=== PATIENT | male | born 1955 | race Caucasian/White ===

== ENCOUNTER 2024-12-23 12:29 | Emergency (ER) | payer MEDICARE, SELFPAY ==
--- NOTE | 2024-12-23 12:30 | ED_ITS ---
HPI - Ear Problem General Chief complaint: Ear Stated complaint: Right Ear Problem Time Seen by Provider: 12/23/24 13:06 Source: patient, RN notes reviewed and old records reviewed Mode of arrival: ambulatory Limitations: no limitations History of Present Illness HPI Narrative: 69-year-old male presents to the [facility] with decreased hearing to the right ear. States a couple of days. Related Data Home Medications ?Medication ?Instructions ?Recorded ?Confirmed ?Last Taken ?Type allopurinol 300 mg tablet mg 12/23/24 Unknown History atenolol 50 mg tablet mg 12/23/24 Unknown History cyclobenzaprine 10 mg tablet mg 12/23/24 Unknown History gabapentin 300 mg capsule mg 12/23/24 Unknown History hydrocodone 7.5 mg-acetaminophen tablet 12/23/24 Unknown History 325 mg tablet meloxicam 7.5 mg tablet mg 12/23/24 Unknown History valacyclovir 1 gram tablet mg 12/23/24 Unknown History Allergies Allergy/AdvReac Type Severity Reaction Status Date / Time No Known Allergies Allergy Verified 12/23/24 12:42 Review of Systems Review of Systems: All systems reviewed & are unremarkable except as noted in HPI and below Constitutional: Constitutional: Reports no additional constitutional complaints ENT: Reports as per HPI Cardiovascular: Cardiovascular: Reports no additional cardiovascular complaints, Denies chest pain and Denies dyspnea Respiratory: Respiratory: Reports no additional respiratory complaints, Denies chest congestion, Denies cough and Denies dyspnea Musculoskeletal: Musculoskeletal: Reports no additional musculoskeletal complaints Integumentary/Breasts: Skin/Breast: Reports system reviewed and no additional complaints, except as docu PMFSH Comments At the time of my signature, I reviewed and agree with the nursing past medical, surgical, social, and family history. There is no relevant family history pertinent to the patient complaint. Exam Const: General: cooperative, healthy appearing, comfortable, no acute distress, well developed, alert and well nourished Nutritional Appearance: well nourished Orientation/consciousness: patient oriented x3 Limitations: no limitations HENMT: Head: normal to inspection Ears: external ears normal, mastoids normal, no periauricular adenopathy, Abnormal EAC present cerumen impaction bilateral and unable to visualize TM bilaterally Eyes: General: appearance normal, both eyes and all related structures Alignment and Position: alignment normal Neck: Neck: normal visual inspection, full ROM, no lymphadenopathy and no meningeal signs Chest: Chest palpation & inspection: normal inspection of the chest Resp: Effort & Inspection: normal respiratory effort and able to speak in complete sentences Cardio: Rate: regular rate Skin: General skin exam: normal color and no rashes or lesions noted Neuro: General: patient oriented x3, gait normal, moves all extremities and no meningeal signs Cognition (Neuro): normal cognition Speech: normal speech Gait exam (Neuro): Normal gait present Extrem: General: normal to inspection, full ROM, capillary refill normal and normal gait Psych: Appearance: grossly normal and well kempt Mental Status: mental status grossly normal Speech and movement: Normal speech and movement present and Clear speech present Affect: normal affect Attitude: cooperative Course Course Level of Care: Express Care Visit Vital Signs Vital signs: Vital Signs Temperature 97.8 F 12/23/24 12:44 Pulse Rate 73 12/23/24 12:44 Respiratory Rate 16 12/23/24 12:44 Blood Pressure 108/68 12/23/24 12:44 Pulse Oximetry 98 12/23/24 12:44 Temperature 97.8 F 12/23/24 12:44 Pulse Rate 73 12/23/24 12:44 Respiratory Rate 16 12/23/24 12:44 Blood Pressure 108/68 12/23/24 12:44 Pulse Oximetry 98 12/23/24 12:44 Reviewed Procedures Ear Wax Removal Both Ears: Ear Wax Removal Date: 12/23/24 Ear Wax Removal Time: 13:15 Medical Decision Making MDM Narrative Medical decision making narrative: Patient sitting comfortably in exam room. Nontoxic, vitals stable. Patient in no acute distress Patient presents for decreased hearing of the right ear. Cerumen impaction noted bilaterally. ears cleaned without issue. Patient reports better hearing. Patient appropriate for outpatient treatment with close follow-up Discharge instructions reviewed with patient, as well as provided in writing per nursing staff. The instructions also include specific and strict return/GO TO THE ER as well as f/u information. All questions have been answered, and the patient deny any further questions with discharge and discharge plan. Some parts of this dictation were generated by voice recognition software and may contain typographical and/or grammatical inaccuracies. Differential Diagnosis Differential Diagnosis: Otitis media, cerumen impaction otitis externa, serous otitis Medical Records Medical records reviewed: Yes I reviewed the external patient's medical records. Vital Signs Vital Signs: Vital Signs Temperature 97.8 F 12/23/24 12:44 Pulse Rate 73 12/23/24 12:44 Respiratory Rate 16 12/23/24 12:44 Blood Pressure 108/68 12/23/24 12:44 Pulse Oximetry 98 12/23/24 12:44 Temperature 97.8 F 12/23/24 12:44 Pulse Rate 73 12/23/24 12:44 Respiratory Rate 16 12/23/24 12:44 Blood Pressure 108/68 12/23/24 12:44 Pulse Oximetry 98 12/23/24 12:44 Reviewed Lab Data Lab results reviewed: Yes I reviewed the patient's lab results. Labs: Reviewed Critical Care Time Critical Care Time Critical Care Time: No Discharge Plan Discharge Clinical Impression: Bilateral impacted cerumen Patient Disposition: Home Condition: Stable Instructions: Antibiotic Form, Carbamide Peroxide (Into the ear) Additional Instructions: You had Cerumen (EAR wax impaction). Do not use Q-tips or put anything in the ear. This can damage the ear. Instead , use Debrox or ear wax remover. Place 5 drops in ear after a hot shower and place a warm compress over the ear for 20 minutes. alternate doing this every 3-4 days. It will break up the wax gently. Do not use too much pressure. Once you have all of the cerumen out of your ears, you may do preventative treatment to prevent this from happening again. Use 5 drops once weekly after a hot shower. Patient Language: Icelandic Prescriptions: No Action cyclobenzaprine 10 mg tablet valacyclovir 1 gram tablet meloxicam 7.5 mg tablet hydrocodone-acetaminophen 7.5-325 mg tablet gabapentin 300 mg capsule allopurinol 300 mg tablet atenolol 50 mg tablet Follow-up/Referrals: Marine,MD Risa [Primary Care Provider] - 2 Weeks ([facility] [place] [facility] care follow up ) Time of Disposition: 13:21
--- OUTSIDE RECORDS SUMMARY | 2024-12-23 12:32 | XMS_ITS | Clinical Summary ---
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 Role Phone Unavailable Primary Care Provider Unavailabl e Social History Tobacco Use Types Packs/Day Years Used Date Smoking Tobacco: Never Assessed Sex and Gender Information Value Date Recorded Sex Assigned at Not on file Legal Sex Male 9:15 AM CDT Gender Identity Not on file Sexual Orientation Not on file Plan of Treatment Health Maintenance Due Date Last Done Comments DTAP/TDAP/TD VACCINES (1 - Tdap) 1974 COLORECTAL SCREENING 2000 Colorectal Cancer Screening 2000 FIT-DNA Q 3 years 2000 FIT/FOBT Q 1 year 2000 Flex Sig/CT Colonography Q 5 years 2000 PNEUMOCOCCAL VACCINE 50+ YEARS (1 of 1 - PCV) 03/12/20 05 ZOSTER VACCINE (1 of 2) 2005 INFLUENZA VACCINE (#1) 2024 RSV VACCINE (60+ or ) (1 - 1-dose 75+ series) 2030 Insurance
--- OUTSIDE RECORDS SUMMARY | 2024-12-23 12:32 | XMS_ITS | Encounter Summary ---
Author Organization [facility] Address [address] [place] [address] Care Team Providers Care Church Official Name Role Phone Risa Hawthorne MD Primary Care Provider + [phone] Thiago Bunch DMD Unavailable [phone] Alf Hernandez MD Unavailable [phone] Arnaud Durant MD Unavailable [phone] Arnaud Garcia MD Unavailable [phone] Juan Prince OD Unavailable [phone] Jorge Luis Manriquez MD Unavailable [phone] Wei Jaramillo MD Unavailable [phone] Elmo Aviles MD Unavailable [phone] Brennon HollisM Unavailable [phone] Moustapha Sharpe MD Unavailable Js Khalil MD Unavailable [phone] Lisy Lacey MD Unavailable Kavon Carvalho Unavailable Unavailable Thom Mendoza OD Unavailable [phone] Kamilah Lozano MD Unavailable Marycarmen Larios MD Unavailable + [phone] Bj Gomez MD Unavailable [phone] Gallo West MD Unavailable [phone] Phill Portillo MD Unavailable [phone] Encounter Details Date Type Department Care Team (Late st Contact Info) Description 09/10/2020 Telephone [facility] [address] [place] [address] Vesta Tobar, KARI Social History Tobacco Use Types Packs/Day Years Used Date Smoking Tobacco: Former Cigarettes Q uit: 09/23/2012 Smokeless Tobacco: Former Alcohol Use Standard Drinks/Week Comments Yes 6 (1 standard drink = 0.6 oz pur e alcohol) PHQ-2 Answer Date Recorded PHQ-2 Total Score (If total score is 3 or more points, staff should administer the PHQ-9) 0 04/11/2020 Sex and Gender Information Value Date Recorded Sex Assigned at Not on file 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 08/14/2020 08/21/2020 12/12/2020 3:05 AM C DT COVID: Suspected 05/29/2021 05/29/2021 05/29/2021 2:30 PM CDT documented as of this encounter Care Teams Church Official Relationship Specialty Start Date End Date Risa Hawthorne MD PCP - General 12/12/16 Thiago Bunch DMD Dental Motion Picture Set Up Worker 03/25/17 Alf Hernandez MD [address] [place] [address] [place] [address] Gastroenterology 03/25/17 Arnaud Durant MD [address] [place] [address] [address] [place] [address] Medical Oncology 03/25/17 06/04/21 Arnaud Garcia MD [address] [place] [address] [address] [place] [address] Psychiatry 03/25/17 01/06/24 Juan Prince OD [address] [place] [address] [address] [place] [address] Ophthalmology 03/25/17 06/04/21 Jorge Luis Manriquez MD [address] [place] [address] Rheumatology 03/25/17 06/04/21 Wei Jaramillo MD PROFESSIONAL DR BASHIR [address] [place] [address] Orthopedic Surgery 03/25/17 12/25/22 Elmo Aviles MD [address] [facility] [place] [address] Plastic Surgery 03/25/17 06/04/21 Brennon Hollis DPM [address] [facility] [place] [address] Orthotics 03/25/17 Moustapha Sharpe MD [address] [facility] [place] [address] Anesthesiologist Anesthesiology 04/08/20 12/25/22 Js Khalil MD [address] [facility] [address] [place] [address] Referring Physician Transplant Hepatology 10/08/20 Lisy Lacey MD 1 [facility] [address] [place] [address] Consulting Physician Neurology 11/28/20 Kavon Carvalho Optometry 06/05/21 12/02/21 Thom Mendoza OD [address] [place] [address] Optometry 12/03/21 Kamilah Lozano MD [address] [place] [address] Medical Oncologist/Supervisor Assembly Department Medical Oncology 08/06/22 Marycarmen Larios MD [address] [place] [address] Consulting Physician Plastic Surgery 12/26/22 Bj Gomez MD [address] [place] [address] Consulting Physician Anesthesiology 07/02/23 Gallo West MD [address] [place] [address] DR HUSSAIN Elena [address] [address] Surgeon Orthopedic Surgery 01/07/24 Phill Portillo MD [address] [place] [address] [place] [address] Orthopedic Surgery 10/03/21 documented as of this encounter
--- OUTSIDE RECORDS SUMMARY | 2024-12-23 12:32 | XMS_ITS | Clinical Summary ---
Author Organization [facility] Address [address] [place] [address] Care Team Providers Care Virtual Classroom Manager Name Role Phone Risa Hawthorne MD Primary Care Provider + [phone] Alf Hernandez MD Unavailable [phone] Brennon HollisM Unavailable [phone] Js Khalil MD Unavailable [phone] Lisy Lacey MD Unavailable Thom Mendoza OD Unavailable [phone] Kamilah Lozano MD Unavailable Marycarmen Larios MD Unavailable [phone] Bj Gomez MD Unavailable [phone] Gallo West MD Unavailable [phone] Phill Portillo MD Unavailable [phone] Allergies No known active allergies Medications senna (SENOKOT) 8.6 mg tablet Take 1-2 tabs nightly for chronic constipation management. 180 tablet 3 024 Active Additional Information Patient not taking.Reported on 12/14/2024 allopurinoL (ZYLOPRIM) 300 mg tabletIndications :Gouty arthritis Take 1 tablet (300 mg total) by mouth daily 90 tablet 3 025 Active sildenafiL, pulm.hypertension , (REVATIO) 20 mg tabletIndications :ED (erectile dysfunction) of organic origin Take 2 tablets (40 mg total) by mouth as needed (ED) ON AN EMPTY STOMACH 60 tablet 5 Active olmesartan (BENICAR) 20 mg tabletIndications :Benign hypertension Take 1 tablet (20 mg total) by mouth daily 90 tablet 1 Active atenoloL (TENORMIN) 50 mg tabletIndications :Benign hypertension Take 1 tablet (50 mg total) by mouth daily 90 tablet 3 025 Active famotidine (PEPCID) 20 mg tabletIndications :gastroesophageal reflux disease Take 1 tablet (20 mg total) by mouth 2 (two) times a day 180 tablet 2 025 2025 Active rosuvastatin (CRESTOR) 40 mg tabletIndications :Multiple-type hyperlipidemia Take 1 tablet (40 mg total) by mouth daily 90 tablet 2 Active valACYclovir (VALTREX) 1 gram tabletIndications :HSV-2 infection Take 1 tablet (1,000 mg total) by mouth daily FOR HSV PREVENTION 90 tablet 3 Active HYDROcodone-aceta minophen (NORCO) 7.5-325 mg per tabletIndications :Pain Take 1 tablet by mouth every 6 (six) hours as needed for pain 120 tablet 025 2024 Active HYDROcodone-aceta minophen (NORCO) 7.5-325 mg per tabletIndications :Pain Take 1 tablet by mouth every 6 (six) hours as needed for pain 120 tablet 025 2024 Active Additional Information Patient not taking.Reported on 10/31/2024 cyclobenzaprine (FLEXERIL) 10 mg tabletIndications :Degenerative lumbar spinal stenosis,Lumbar radiculopathy Take 1 tablet (10 mg total) by mouth nightly as needed for muscle spasms 30 tablet 2 2024 Active gabapentin (NEURONTIN) 300 mg capsuleIndication s:Degenerative lumbar spinal stenosis,Lumbar radiculopathy Take 1 capsule (300 mg total) by mouth 3 (three) times a day 90 capsule 2 025 2024 Active zolpidem CR (AMBIEN CR) 6.25 mg CR tablet TAKE 1 TABLET BY MOUTH AT BEDTIME NEEDED FOR SLEEP 30 tablet 025 Active meloxicam (MOBIC) 7.5 mg tabletIndications :Primary osteoarthritis of right hip Take 1-2 tablets (7.5-15 mg total) by mouth daily 30 tablet 1 025 2025 Active traMADoL (ULTRAM) 50 mg tabletIndications :Acute right-sided low back pain without sciatica,Right hip pain,Acute pain of right knee Take 1 tablet (50mg total) by mouth twice daily as needed for right back, right hip, and/or right knee pain. 14 tablet 022 2021 Discontinued HYDROcodone-aceta minophen (NORCO) 7.5-325 mg per tabletIndications :Pain Take 1 tablet by mouth every 6 (six) hours as needed for pain 120 tablet 025 2024 zolpidem CR (AMBIEN CR) 6.25 mg CR tablet TAKE 1 TABLET BY MOUTH AT BEDTIME NEEDED FOR SLEEP 30 tablet 025 2024 Discontinued Active Problems Problem Noted Date Diagnosed Date Primary osteoarthritis of right hip 12/14/2024 Assessment & Plan (12/14/2024 11:05 AM CDT): Chronic, in exacerbation Differential diagnoses: Primary osteoarthritis v posttraumatic arthritis Hx relative to dx: No history of trauma to right hip Relative exam findings today: See physical exam Current meds: None for hip pain; takes Maize for chronic back pain per pain management Established with pain management follow-up 02/01/2024 Has previously done PT in the past for back and right hip with minimal pain alleviation Today's Plan: Start meloxicam Not interested in returning to physical therapy at this time Lab orders: none Imaging orders: Right hip x-ray; will compare to previous imaging Discussed: Potential for orthopedic consult regarding right hip. He follows with orthopedics for left shoulder at this time. Has follow-up with them next month. Pancytopenia 10/03/2024 Diabetes due to undrl condition w oth diabetic n euro comp 10/03/2024 BRBPR (bright red blood per rectum) 06/24/2024 Internal hemorrhoids 06/24/2024 Ulnar neuropathy of right upper extremity 2023 Encounter for long-term use of opiate analgesic 11/25/2023 Thoracic spinal stenosis 05/12/2023 Overview (05/12/2023): Confirmed on MRI April 2023 most significant at tiny 9 and 10 CORD: Evaluation is degraded by motion and pulsation related artifact. Subtle T2 hyperintense signal at T9-T10 would be difficult to exclude. THORACIC DISCS: T1-T2: No significant disc bulge or spinal canal stenosis. Thickened ligamentum flavum and facet arthropathy with bilateral neural foraminal narrowing. T4-T5: Minor disc bulge without significant spinal canal stenosis. Thickened ligamentum flavum and facet arthropathy with bilateral neural foraminal narrowing. T5-T6: Mild disc bulge without significant spinal canal stenosis. Thickened ligamentum flavum and facet arthropathy moderate to severe bilateral neural foraminal narrowing. T6-T7 and T7-T8: No significant disc bulge or spinal canal stenosis. Thickened ligamentum flavum and facet arthropathy with bilateral neural foraminal narrowing. T8-T9: Disc bulge with thickened ligamentum flavum and bilateral facet arthropathy. Mild spinal canal stenosis. Moderate to severe bilateral neural foraminal narrowing. T9-T10: Disc bulge with thickened ligamentum flavum and facet arthropathy. Disc abuts the ventral cord and thickened ligamentum flavum indents the dorsal cord. Moderate to severe spinal canal stenosis. Severe bilateral neural foraminal narrowing. At the remainder of the visualized thoracic levels no significant disc bulge, spinal canal or neural foraminal narrowing. LOWER CERVICAL: Incompletely imaged. Mid to lower cervical ACDF related changes are new when compared to the previous CT dated 08/27/2022. UPPER LUMBAR: Not imaged. IMPRESSION: 1. Multilevel thoracic disc degenerative changes with more advanced thickened ligamentum flavum and facet arthropathy as described. The spinal canal stenosis is most noticeable at T9-T10. 2. Neural foraminal narrowing and additional findings above. THIS IS AN ELECTRONICALLY VERIFIED FINAL REPORT 05/12/2023 7:53 AM - Electronically signed by Otto Savage D.O. Degenerative lumbar spinal stenosis 05/21/2022 Assessment & Plan (12/14/2024 11:01 AM CDT): Follows with pain management Has completed PT with minimal improvement of pain Maize per pain management q.6 hours PRN Discussed potential of lumbar stenosis contributing to right hip pain Assessment & Plan (04/13/2023 9:13 AM CDT): Lost his long-term pain management physician at [facility] in a new in his not arrived yet. Having difficulty with legs becoming painful and numb when walking. This is interfering with his activities and consult attendance. He is advised to get a wheeled walker. He qualifies for [employer] paperwork which is established for permanent disability today. It does not appear to need any new medications at this time. Previous testing is updated as the May 2022 confirming foraminal stenosis at multiple levels of the lumbar spine starting at L2-3 extending all through L5- S1. He has moderate spinal stenosis from L2-3 LY through 2 L4-5 DDD (degenerative disc disease), lumbar 05/05/20 Assessment & Plan (04/12/2024 10:59 AM CDT): Chronic problem, controlled on current regimen including Maize-Followed by pain management. C/o constipation as described above. Abdomen diffusely distended on exam today. No other acute findings on exam, vitals stable. Recent ER workup unremarkable. Continue current pain management recommendations and use Maize only as needed, as this is likely contributing to constipation. Assessment & Plan (05/26/2022 4:14 PM CDT): Chronic problem Followed by pain management Continue current pain management recommendations Has been unable to receive spinal injections due to thrombocytopenia Referred to hematology for evaluation Follow up as scheduled with Dr. Hawthorne in 06/2022 Lumbar radiculopathy 05/05/2022 Lumbar facet arthropathy 05/05/2022 Common bile duct dilation 12/31/2021 Overview (12/31/2021): Added automatically from request for surgery [id number] Abnormal CT of liver 06/19/2020 Overview (08/06/2022): Images from the original note were not included. Condition concerning because of previous thrombocytopenia Repeat MRCP (-) for liver problem 07/08/2022 Spleen: Normal Other Findings: Lung bases are clear. No abdominal lymphadenopathy. No marrow replacing osseous lesion IMPRESSION: 1. Unchanged size and appearance of lesions along the capsule of the inferior right hemiliver, favored represent sequela dropped gallstones. Additional unchanged focus of progressive enhancement in the gallbladder fossa is favored represent fibrotic changes status post cholecystectomy. No new suspicious hepatic lesion Dictated by: Elmo Chen M.D. HEPATOLOGY DECLINED CONSULTATION NOVEMBER 2021 Irene Velez RN [place], MD Wang [address] Dr. I am one of the RNs in Hepatology that manages new referrals. I received your referral from 12/03 requesting we follow up on this patient's imaging. Dr Khalil initially saw this patient 10/04/2020, and has been managing the MRI as well--this pt is already scheduled for a follow up MRI/MRCP on December 26, 2021--should have been done in Oct but this pt started a new job and needed time off. Was scheduled 12/09, and he changed it to 12/26. I have also included Dr Khalil's review of the 04/25/21 MRI: MD Simran sent at 04/25/2021 5:25 PM CDT ----- Previously seen areas either improved or stable; radiologist thought possibly some scar tissue related to gallbladder surgery. Slight dilation of bile ducts; with normal liver tests, no need for additional studies now. I would recommend follow up MRI/MRCP in 6 months. I wanted to let you know why I was cancelling this referral. Thanks, Irene Velez, RN,BSN Hepatology Nurse Coordinator for Dr. Carson Mota [phone] Condition found incidentally during pneumonia evaluation at the emergency room 04/26/2020 1. No acute findings in the abdomen or pelvis. 2. Right hepatic lobe 1.5 cm hypodense lesion with associated capsular retraction is new from 06/02/2019. This is indeterminate but suspicious for malignancy such as cholangiocarcinoma. The differential includes a focal area of infection or less likely infarction. Liver mass protocol MRI is recommended. 3. Bronchiolitis. Electronically signed by: Milan Núñez M.D.November 2020 repeat scan stable this is a consult The findings outlined above are consistent with a dropped gallstone, as well as scar tissue due to the previous gallbladder surgery. The radiologists have recommended repeating the MRI in 6 months. If that shows no further change, I suspect no additional MRI's will be needed Consultation Dr. Khalil September 2020 T he appearance of additional liver lesions does raise concern for malignancy. Tumor markers, as listed above, are not elevated. Of note, all of the lesions are along the edge of the liver or in the gallbladder fossa. I reviewed the films with one of our radiologists who is concerned the lesions represent dropped gallstones. These may have fallen out of the gallbladder at the time of the cholecystectomy. I think it reasonable to check another MRI to be certain the lesions are not intrahepatic neoplasms. However, it has been nearly 6 weeks since his last study and he has no obvious evidence of an accelerated tumor resulting in liver dysfunction or biliary obstruction. If these do represent dropped gallstones, they could become infected with time. I am not convinced exploration to try and remove them is necessary. Further recommendations at the time of follow-up MRI. Assessment & Plan (06/19/2020 3:24 PM CDT): CT for pneumonia eval showed abnl in liver--1.5 cm lesion in the R lobe as well as questionable mass in the duodenum. MRI corroborated the liver lesion at 2.5 cm. Blood work normal and no history to explain. Radiology suggested repeat scan 1-3 mos. Will order repeat for July. EGD 2 yrs ago normal duodenum but he desires to repeat to attain certainty. Foraminal stenosis of cervical region 01/26/2020 Overview (04/08/2020): C-spine MRI September 2019 Dr. Jaramillo, he referred to Dr. Sharpe to get foraminal injections IMPRESSION: 1. Multilevel cervical spondylotic changes have mildly progressed when compared to the previous MRI of 01/24/2014. No high-grade spinal canal narrowing. 2. Bilateral neural foraminal narrowing, left greater than right is most noticeable at C5-C6. Otto Savage D.O. T: 10/14/2019 11:05 AM Insomnia secondary to chronic pain 01/26/2020 Cervical spinal stenosis 01/26/2020 Overview (04/13/2023): C7-T1 spinal stenosis otherwise foraminal narrowing throughout C1-C2: No significant spinal stenosis. C2-C3: No significant spinal stenosis or neural foraminal stenosis. C3-C4: Stable shallow central disc protrusion. Minimal contact of the ventral cord but no cord impingement. Uncovertebral and facet spurring bilaterally with mild left and moderate right foraminal narrowing. C4-C5: Bilateral facet arthritis and uncovertebral spurs. Minimal uncovering of the posterior disc margin due to the anterolisthesis. Findings are stable. There is [id number] right and mild left foraminal narrowing. C5-C6: Diffuse uncovering of the posterior disc margin with shallow right paramidline disc protrusion. Slight contact and flattening along the anterior cord but no cord impingement. Facet and uncovertebral spurring on the left with severe left foraminal narrowing. No significant right foraminal narrowing. C6-C7: Facet and uncovertebral spurs left greater than right. No central canal stenosis. Mild bilateral foraminal narrowing. C7-T1: Facet and uncovertebral spurring on the left with mild left foraminal narrowing. Mild spinal stenosis due to mild thickening of posterior ligaments. No new finding. BASE OF BRAIN: No significant finding. UPPER THORACIC: Incompletely imaged. No significant spinal stenosis or foraminal stenosis. OTHER: No other significant finding. IMPRESSION: Stable overall appearance of the cervical spine with multilevel disc degeneration, facet arthritis and uncovertebral spurs. Spinal stenosis with mild contact along the ventral cord most evident at C5-6 and C4-5 levels. No high-grade spinal stenosis or cord impingement. Multilevel foraminal stenosis, most evident on the left at C5-6. See detail above. THIS IS AN ELECTRONICALLY VERIFIED FINAL REPORT 07/29/2022 9:24 AM - Electronically signed by Estefani Machado M.D. LC: CODEY Assessment & Plan (04/13/2023 9:13 AM CDT): Intermittent neck pain. Intermittent arm numbness and tingling. Not interfering with upper extremity activities. He does have foraminal stenosis throughout the cervical roots from C3-[address] C7-T1 with mild spinal stenosis at the lowest level. Assessment & Plan (04/13/2023 8:49 AM CDT): >>ASSESSMENT AND PLAN FOR DEGENERATIVE DISC DISEASE, CERVICAL WRITTEN ON 07/03/2022 8:24 PM BY KERON GAYTAN NP Chronic issue being followed by dr. Sharpe at [facility]. Patient states they are wanting to do more spinal injections and possibly surgery but they will not until we figure out his Thrombocytopenia. Continue Maize as directed by pain management. Refused additional PT. Heat/ice as tolerated. Keep follow with pain management in [address] hawthorne in 1 month, sooner if needed. Pseudothrombocytopenia 03/30/2019 Assessment & Plan (08/28/2022 1:17 PM LEGAL EDITOR): Chronic problem Patient had recent blood draw utilizing citrate-containing lab tube after seeing hematology - platelet count came back normal, 163 Physical examination as documented - no signs/symptoms of serious illness noted Patient wondering if current medications contributing to falsely low platelet counts Recommended continuing all medications as currently prescribed, none are likely contributing to patient's platelets aggregating in blood collection tube - patient verbalized understanding and agreement Orders for AMS STAFF to arrange None at this time Orders for Deyvi Lozada to arrange Continue all medications as prescribed Discuss with hematology whether they think it is prudent to follow up at least one more time Follow up for surgeries as recommended Follow up with Dr. Hawthorne as scheduled or sooner if necessary Assessment & Plan (07/03/2022 8:06 PM CDT): See hematology visit from 06/25/22. Repeat and additional testing has not all resulted yet. Will continue to monitor. Keep follow in 6 weeks, sooner if needed. Assessment & Plan (05/26/2022 4:19 PM CDT): Platelets have been low for approximately 1 year Denies signs of or concerns for bleeding Referred to hematology for evaluation Follow up as scheduled with Dr. Hawthorne in 06/2022 HSV infection 09/23/2017 Overview (03/30/2019): Valtrex 1 g twice daily p.r.n., HSV, occasional cold sores Obesity (BMI 30-39.9) 09/19/2017 Assessment & Plan (12/14/2024 10:37 AM CDT): Chronic, stable Diagnosis likely 2/2 excess caloric intake in setting of chronicity of disease History/comorbidity possibly contributing to diagnosis: DM2, HLD Most recent relevant labs reviewed and discussed with patient: Most recent hemoglobin A1c: No results found for: HGBA1C Current therapy (ies): none Current weight & BMI: Wt Readings from Last 1 Encounters: 10/31/24 117 kg (258 lb) There is no height or weight on file to calculate BMI. Obesity class: 1 Wt Readings from Last 5 Encounters: 10/31/24 117 kg (258 lb) 10/03/24 119.9 kg (264 lb 6.4 oz) 09/27/24 120.2 kg (265 lb) 07/15/24 121.7 kg (268 lb 4.8 oz) 06/24/24 120.6 kg (265 lb 14.4 oz) Today's plan: Medications: No medications initiated today for obesity New lab orders today: None Education provided. Recommendations: diet: recommend heart healthy diet including balanced diet of proteins, green leafy vegetables, moderate carbohydrate and dairy intake and recommend regular exercise. AHA recommends at least 30 minutes daily of elevated heart rate above 130 beats per minute (bpm) Total time spent on obesity counselin minutes Hx of adenomatous colonic polyps 02/19/2016 Overview (04/11/2020): March [address] Hernandez due in 5 years Periodic limb movement disorder 06/13/2015 Overview (12/19/2016): PLMD (periodic limb movement disorder) Gouty arthritis 01/28/2014 Overview (12/19/2016): Gout ED (erectile dysfunction) of organic origin 01/12 Overview (12/19/2016): ED (erectile dysfunction) Chronic GERD 01/28/2014 Overview (12/19/2016): GERD (gastroesophageal reflux disease) Assessment & Plan (10/05/2019 3:28 PM LEGAL EDITOR): Continue present regimen symptoms well controlled. MARTY (obstructive sleep apnea) 01/28/2014 Overview (06/02/2021): November 2020 update MARTY testing referred to Dr. Lacey Impression: 1. Reduced sleep efficiency. 2. Mild to moderate snoring. 3. Severe obstructive sleep apnea syndrome. 4. Positive pressure therapy was attempted bilevel therapy inspiratory positive pressure 25 cm and expiratory positive pressure 1970 seems to be the best attempted pressure 5. A ResMed air touch F 20 medium size mask was used. MARTY (obstructive sleep apnea) Managed by Dr. Gray with the oral dental appliance Multiple-type hyperlipidemia 01/28/2014 Overview (12/19/2016): Combined hyperlipidemia Assessment & Plan (10/05/2019 3:29 PM LEGAL EDITOR): LDL well controlled on recent labs. HDL low and triglycerides slightly elevated. Patient will continue statin and diet and exercise recommended. We will repeat labs prior to annual visit Benign hypertension 01/28/2014 Overview (12/19/2016): Benign essential hypertension Assessment & Plan (05/11/2024 12:06 PM CDT): Chronic, at goal. BP stable in office today on current therapy after re-starting Olmesartan. No acute findings on exam. Recent CMP unremarkable. Continue atenolol and Olmesartan as rxd. low salt diet. Assessment & Plan (04/12/2024 10:57 AM CDT): Chronic, at goal. BP stable in office today on current therapy. No acute findings on exam. Recent [facility] ER labs were unremarkable. Continue atenolol and low salt diet. Assessment & Plan (08/04/2023 1:05 PM LEGAL EDITOR): BP stable in office today on current therapy after stopping olmesartan. No acute findings on exam. Never got labs done ordered 2 weeks ago. Continue current regimen and low salt diet. Assessment & Plan (09/12/2022 1:55 PM LEGAL EDITOR): EKG performed in office prior to upcoming neck surgery due to presence of CV risk factors See assessment and plan for preoperative clearance Assessment & Plan (07/03/2022 8:26 PM CDT): Stable on current therapy. No acute findings on exam. Continue to monitor at home daily and record, bring to next office visit. Continue low salt diet. Encouraged heart healthy exercise as tolerated. Follow with dr. hawthorne in 1 month, sooner if needed. Assessment & Plan (10/05/2019 3:27 PM LEGAL EDITOR): Blood pressure is well controlled will continue with present regimen Resolved Problems Problem Noted Date Diagnosed Date Resolved Date Hematochezia 04/06/2024 05/11/2024 Assessment & Plan (04/14/2024 11:37 AM CDT): Symptoms for approximately 2 weeks. Admits lynsey blood in toilet bowl and on toilet tissue when wiping. Recent ER workup was unremarkable- hemoglobin at 10.6, platelets at 111, PT INR normal. KUB showed moderate stool burden. Last C-scope 11/2021 showed small polyps and hemorrhoids- repeat 5 yrs. Both internal and external hemorrhoids found on exam today with mild diffuse distention of the abdomen but no tenderness. Prescribed hydrocortisone suppositories as instructed. We will refer to GI for further assessment and possible repeat colonoscopy if needed. Discussed strict management of constipation in office today and advised that Maize use can worsen these symptoms. Continue both Colace and MiraLax as instructed. Discussed adding senna or Dulcolax suppositories if symptoms persist. Discussed the utmost importance of staying hydrated. Discussed soluble VS insoluable sources of fiber-avoid nuts, beans, broccoli, cauliflower, green beans, potato skins, onions, and bran. Educated on natural laxatives such as prunes, apple juice, smooth move tea, coffee, and probiotics. Follow in 1 month Irritable bowel syndrome with constipation 04/06/2024 06/24/2024 Assessment & Plan (05/11/2024 12:05 PM CDT): Chronic, uncontrolled. Hematochezia from last month visit seems to have resolved with daily miralax and colace. Pain Management tried to rx movantik but med was too expensive. KUB from last month showed moderate stool burden. Last C-scope 11/2021 showed small polyps and hemorrhoids- repeat 5 yrs. mild diffuse distention of the abdomen but no tenderness. Keep follow with GI on 06/24/24, offered to refer to alternate location to see if we can get him in any sooner, patient declined at this time. Discussed strict management of constipation in office today. Continue both Colace and MiraLax as instructed. Discussed adding senna or Dulcolax suppositories if symptoms persist. Discussed the utmost importance of staying hydrated. Discussed soluble VS insoluable sources of fiber-avoid nuts, beans, broccoli, cauliflower, green beans, potato skins, onions, and bran. Educated on natural laxatives such as prunes, apple juice, smooth move tea, coffee, and probiotics. Assessment & Plan (04/14/2024 11:36 AM CDT): Chronic, uncontrolled. Admits lynsey blood in toilet bowl and on toilet tissue when wiping. Recent ER workup was unremarkable- hemoglobin at 10.6, platelets at 111, PT INR normal. KUB showed moderate stool burden. Last C-scope 11/2021 showed small polyps and hemorrhoids- repeat 5 yrs. Both internal and external hemorrhoids found on exam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 Schedule Routine, Read Routine (OP Routine) 10/04/2024 9:50 AM LEGAL EDITOR Kyphosis, unspecified kyphosis type, unspecified spinal region Osteogenesis imperfecta EGFR Routine 10/03/2024 2:45 PM LEGAL EDITOR Memory changes CYSTATIN C Routine 10/03/2024 2:45 PM LEGAL EDITOR Memory changes RENAL FUNCTION PANEL Routine 10/03/2024 2:45 PM LEGAL EDITOR Memory changes METHYLMALONIC ACID, SERUM Routine 10/03/2024 2:45 PM LEGAL EDITOR Memory changes T4, FREE Routine 10/03/2024 2:45 PM LEGAL EDITOR Memory changes TSH Routine 10/03/2024 2:45 PM LEGAL EDITOR Memory changes VITAMIN B12 Routine 10/03/2024 2:45 PM LEGAL EDITOR Memory changes URINALYSIS AND REFLEX TO MICROSCOPIC Routine 10/03/2024 2:45 PM LEGAL EDITOR Memory changes HEPATITIS B CORE ANTIBODY, TOTAL Routine 10/03/2024 2:45 PM LEGAL EDITOR Need for hepatitis B screening test HEPATITIS B SURFACE ANTIBODY (IMMUNE STATUS) Routine 10/03/2024 2:45 PM LEGAL EDITOR Need for hepatitis B screening test HEPATITIS B SURFACE ANTIGEN Routine 10/03/2024 2:45 PM LEGAL EDITOR Need for hepatitis B screening test EGFR Routine 09/27/2024 10:32 AM LEGAL EDITOR Benign hypertension LIPID PANEL Routine 09/27/2024 10:32 AM LEGAL EDITOR Benign hypertension COMPREHENSIVE METABOLIC PANEL Routine 09/27/2024 10:32 AM LEGAL EDITOR Benign hypertension PSA SCREEN Routine 09/27/2024 10:32 AM LEGAL EDITOR Prostate cancer screening URIC ACID Routine 09/27/2024 10:32 AM LEGAL EDITOR Benign hypertension HEPATITIS C ANTIBODY Routine 06/25/2022 11:48 AM CDT Thrombocytopenia COLONOSCOPY 11/25/2021 10:12 AM CDT from Last 3 Months or Most Recently Relevant to Health Maintenance Results * XR Hip Right 2 or 3 Views (12/14/2024 11:09 AM CDT) Anatomical Region Laterality Modality Lower Extremities, Hip, Pelvis Right C omputed Radiography 12/19/2024 9:29 AM CDT Narrative 12/19/2024 9:31 AM CDT EXAM DESCRIPTION: XR HIP RIGHT 2 OR 3 VIEWS REASON FOR STUDY: right hip osteoarthritis Pain in the right hip No trauma No surgery TECHNIQUE: 2 radiographic view(s) of the right hip . COMPARISON: Comparison 01/07/2024. FINDINGS: BONES/JOINTS: There is no acute fracture, malalignment or osseous abnormality. Mild marginal spurring of the joint margins, stable. SOFT TISSUES: Within normal limits. IMPRESSION: No acute osseous abnormality. Mild marginal spurring of the joint margins as evidence for mild osteoarthritis in the appropriate clinical setting. THIS IS AN ELECTRONICALLY VERIFIED FINAL REPORT 12/19/2024 9:31 AM - Electronically signed by Estefani Machado M.D. LC: CODEY Report ID: [id number] Reading Location: [id number] Procedure Note Rena Machado MD - 12/19/2024 EXAM DESCRIPTION: XR HIP RIGHT 2 OR 3 VIEWS REASON FOR STUDY: right hip osteoarthritis Pain in the right hip No trauma No surgery TECHNIQUE: 2 radiographic view(s) of the right hip . COMPARISON: Comparison 01/07/2024. FINDINGS: BONES/JOINTS: There is no acute fracture, malalignment or osseousabnormality. Mild marginal spurring of the joint margins, stable. SOFT TISSUES: Within normal limits. IMPRESSION: No acute osseous abnormality. Mild marginal spurring of the joint marginsas evidence for mild osteoarthritis in the appropriate clinical setting. THIS IS AN ELECTRONICALLY VERIFIED FINAL REPORT 12/19/2024 9:31 AM - Electronically signed by Estefani Machado M.D. LC: CODEY Report ID: [id number] Reading Location: [place] [address] us Ernestina Celestin HOME LIGHTING ADVISER IMG XR PROCEDURES Final Res ult * [place] ARTHROCENTESIS ASPIR&/INJ MAJOR JT/BURSA W/O US (10/31/2024 11:15 AM LEGAL EDITOR) Narrative Reynaldo Smiley PA - 10/31/2024 11:15 AM LEGAL EDITOR Reynaldo Smiley PA 10/31/2024 11:59 AM Large Joint (Hip, Knee, Shoulder) Injection: L glenohumeral Performed by: Reynaldo Smiley PA Authorized by: Reynaldo Smiley PA Large Joint Injection/Aspiration: Consent Given by: Patient Site marked: the procedure site was marked Timeout: prior to procedure the correct patient, procedure, and site was verified Verbal consent obtained: Yes Supporting Documentation: Indications: Pain Procedure Details: Location: Shoulder Site: L glenohumeral Prep: patient was prepped and draped in usual sterile fashion Prep: patient was prepped using a clean technique Needle Size: 22 G Approach: Posterior Ultrasound guided: No Fluroscopic guidance: No Medications: 80 mg methylPREDNISolone acetate 80 mg/mL Patient tolerance: Patient tolerated the procedure well with no immediate complications us Reynaldo LEYVA IN CLINIC/BEDSIDE KAILEE ALATORRE Final Result * XR Shoulder Left 2 or More Views (10/31/2024 11:03 AM LEGAL EDITOR) Anatomical Region Laterality Modality Upper Extremities, Shoulder Left Digi bella Radiography Narrative 10/31/2024 11:31 AM LEGAL EDITOR Views of the left shoulder reviewed interpreted today. No evidence of fracture or dislocation. Advanced degenerative changes noted at AC and glenohumeral joint spaces with [id number] changes subchondral sclerosis osteophyte formation. us Reynaldo LEYVA IMG XR PROCEDURES Nahomi l Result * US Abdominal Aortic Aneurysm Screening (10/18/2024 10:08 AM LEGAL EDITOR) Anatomical Region Laterality Modality Abdomen Ultrasound 10/19/2024 11:0 9 AM LEGAL EDITOR Narrative 10/19/2024 11:11 AM LEGAL EDITOR EXAM DESCRIPTION: US ABDOMINAL AORTIC ANEURYSM SCREENING REASON FOR STUDY: AAA screening AAA screening, hypertension, hyperlipidemia, quit smoking 10 yrs ago TECHNIQUE: Grayscale images acquired of the aorta and stored on PACS. Selected color Doppler and spectral images recorded. COMPARISON: None available FINDINGS: AORTIC CALIBER MAXIMAL PROXIMAL: 2.8 x 2.3 cm. MID: 2.2 x 1.7 cm. DISTAL: 1.7 x 1.5 cm. ILIAC DIAMETER RIGHT: 1.2 x 1.1 cm. LEFT: 1.1 x 1.1 cm. OTHER: No other significant finding. IMPRESSION: No abdominal aortic aneurysm. REFERENCE: Please see below follow up recommendations for abdominal aortic aneurysm surveillance per Society for Vascular Surgery Guidelines: < 2.6 cm No follow up or future screenings necessary 2.62.9 cm Recommended ultrasound follow up every 5 years 3.0-3.4 cm Recommended ultrasound follow up every 3 years 3.5-3.9 cm Recommended ultrasound follow up every 12 months 4.0-4.9 cm Recommended ultrasound follow up every 12 months, vascular surgery consult 5.0-5.4 cm Recommended ultrasound follow up every 6 months, vascular surgery consult >= 5.5 cm Referral to vascular surgeon Based upon Society for Vascular Surgery Guidelines: J Vasc Surgery 2008 50: s2-s49; updated Sep 2017 J Vasc Surgery 67:2-77 THIS IS AN ELECTRONICALLY VERIFIED FINAL REPORT 10/19/2024 11:11 AM - Electronically signed by Milan Riggins M.D. RB: MARTINA Report ID: [id number] Reading Location: [id number] Procedure Note Milan Riggins MD - 10/19/2024 EXAM DESCRIPTION: US ABDOMINAL AORTIC ANEURYSM SCREENING REASON FOR STUDY: AAA screening AAA screening, hypertension, hyperlipidemia, quit smoking 10 yrs ago TECHNIQUE: Grayscale images acquired of the aorta and stored on PACS.Selected color Doppler and spectral images recorded. COMPARISON: None available FINDINGS: AORTIC CALIBER MAXIMAL PROXIMAL: 2.8 x 2.3 cm. MID: 2.2 x 1.7 cm. DISTAL: 1.7 x 1.5 cm. ILIAC DIAMETER RIGHT: 1.2 x 1.1 cm. LEFT: 1.1 x 1.1 cm. OTHER: No other significant finding. IMPRESSION: No abdominal aortic aneurysm. REFERENCE: Please see below follow up recommendations for abdominal aortic aneurysm surveillance per Society for Vascular Surgery Guidelines: < 2.6 cm No follow up or future screenings necessary 2.62.9 cm Recommended ultrasound follow up every 5 years 3.0-3.4 cm Recommended ultrasound follow up every 3 years 3.5-3.9 cm Recommended ultrasound follow up every 12 months 4.0-4.9 cm Recommended ultrasound follow up every 12 months, vascularsurgery consult 5.0-5.4 cm Recommended ultrasound follow up every 6 months, vascularsurgery consult >= 5.5 cm Referral to vascular surgeon Based upon Society for Vascular Surgery Guidelines: J Vasc Surgery 2009Oct 50: s2-s49; updated Sep 2017 J Vasc Surgery 67:2-77 THIS IS AN ELECTRONICALLY VERIFIED FINAL REPORT 10/19/2024 11:11 AM - Electronically signed by Milan Riggins M.D. RB: MARTINA Report ID: [id number] Reading Location: [id number] us Risa Hawthorne MD IMG US PROCEDURES Final Re sult * US Bladder Post Void (10/18/2024 9:50 AM LEGAL EDITOR) Anatomical Region Laterality Modality Bladder N/A Ultrasound 10/19/2024 11:0 8 AM LEGAL EDITOR Narrative 10/19/2024 11:09 AM LEGAL EDITOR EXAM DESCRIPTION: US BLADDER POST VOID REASON FOR STUDY: elevated creatinine, urinary retention elevated creatinine, urinary retention, slow stream TECHNIQUE: Grayscale images of the bladder pre-void and post-void. COMPARISON: None available FINDINGS: PREVOID BLADDER VOLUME: 299.6 ml. POST VOID BLADDER VOLUME: 30.1 ml. OTHER: Ureteral jets are not identified during the time course of this exam. No filling defects or regions of bladder wall thickening identified. IMPRESSION: No sonographic abnormality of the bladder. Bladder volumes as above. THIS IS AN ELECTRONICALLY VERIFIED FINAL REPORT 10/19/2024 11:09 AM - Electronically signed by Milan Riggins M.D. RB: MARTINA Report ID: [id number] Reading Location: [id number] Procedure Note Milan Riggins MD - 10/19/2024 EXAM DESCRIPTION: US BLADDER POST VOID REASON FOR STUDY: elevated creatinine, urinary retention elevated creatinine, urinary retention, slow stream TECHNIQUE: Grayscale images of the bladder pre-void and post-void. COMPARISON: None available FINDINGS: PREVOID BLADDER VOLUME: 299.6 ml. POST VOID BLADDER VOLUME: 30.1 ml. OTHER: Ureteral jets are not identified during the time course of thisexam. No filling defects or regions of bladder wall thickening identified. IMPRESSION: No sonographic abnormality of the bladder. Bladder volumes as above. THIS IS AN ELECTRONICALLY VERIFIED FINAL REPORT 10/19/2024 11:09 AM - Electronically signed by Milan Riggins M.D. 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 CLINICAL INFORMATION: Current height: 75 inches Maximum height: 76 inches Weight: 264 pounds Risk factors: Height loss with kyphosis. COMPARISON: None available FINDINGS: AP LUMBAR SPINE L1-L4: Total BMD is 1.339 g/cm2 T-score is 2.7 LEFT HIP: Total BMD is 0.990 g/cm2 T-score is 0.4 Femoral neck BMD is 0.786 g/cm2 T-score is -0.6 FRAX: FRAX not reported due to T-scores of hip, femoral neck and/or spine being at or above -1.0 (Normal). IMPRESSION: Normal bone mass. REFERENCE: Bone mineral density: T-Score: Normal (T-score above or = -1.0) Low bone mass (T-score between -1.0 and -2.5) replaces the previously used term osteopenia Osteoporosis (T-score = or below -2.5) Z-Score: Within the expected range for age (Z-score above -2.0) Below the expected range for age (Z-score is -2.0 or below) Please see below follow up recommendations. Medical evaluation for secondary causes of low bone mineral density may be appropriate. FRAX is a World Health Organization validated fracture risk assessment tool that calculates a person's 10 year probability of a major osteoporosis related fracture and hip fracture. According to the National Osteoporosis Foundation guidelines, postmenopausal women and men age 50 or older with low bone mass and a 10 year probability of a major osteoporosis related fracture = or greater than 20% or a 10 year probability of a hip fracture = or greater than 3% should be considered for pharmacological treatment for the prevention of osteoporosis. For further information, including treatment recommendations, please refer to the 2019 ISCD Official Positions (http://www.iscd.org) and the NOF's Clinician's Guide to Prevention and Treatment of Osteoporosis (http://www.nof.org/professionals/clinical-guidelines) THIS IS AN ELECTRONICALLY VERIFIED FINAL REPORT 10/04/2024 3:17 PM - Electronically signed by Elmo Gamble M.D. 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 CLINICAL INFORMATION: Current height: 75 inches Maximum height: 76 inches Weight: 264 pounds Risk factors: Height loss with kyphosis. COMPARISON: None available FINDINGS: AP LUMBAR SPINE L1-L4: Total BMD is 1.339 g/cm2 T-score is 2.7 LEFT HIP: Total BMD is 0.990 g/cm2 T-score is 0.4 Femoral neck BMD is 0.786 g/cm2 T-score is -0.6 FRAX: FRAX not reported due to T-scores of hip, femoral neck and/or spine beingat or above -1.0 (Normal). IMPRESSION: Normal bone mass. REFERENCE: Bone mineral density: T-Score: Normal (T-score above or = -1.0) Low bone mass (T-score between -1.0 and -2.5) replaces thepreviously used term osteopenia Osteoporosis (T-score = or below -2.5) Z-Score: Within the expected range for age (Z-score above -2.0) Below the expected range for age (Z-score is -2.0 or below) Please see below follow up recommendations. Medical evaluation forsecondary causes of low bone mineral density may be appropriate. FRAX is a World Health Organization validated fracture risk assessmenttool that calculates a person's 10 year probability of a major osteoporosisrelated fracture and hip fracture. According to the National OsteoporosisFoundation guidelines, postmenopausal women and men age 50 or older with low bonemass and a 10 year probability of a major osteoporosis related fracture = or greater than 20% or a 10 year probability of a hip fracture = or greaterthan 3% should be considered for pharmacological treatment for the preventionof osteoporosis. For further information, including treatment recommendations, please referto the 2019 ISCD Official Positions (http://www.iscd.org) and the NOF's Clinician's Guide to Prevention and Treatment of Osteoporosis (http://www.nof.org/professionals/clinical-guidelines) THIS IS AN ELECTRONICALLY VERIFIED FINAL REPORT 10/04/2024 3:17 PM - Electronically signed by Elmo Gamble M.D. MF: RENEE Report ID: [id number] Reading Location: [place] [address] Risa Hawthorne MD IMG DXA PROCEDURES Final R esult * eGFR (10/03/2024 2:45 PM LEGAL EDITOR) Pathologist [facility] [place] eGFR 64 >=60 mL/min/1. 73 m2 Comment: Interpretive Data Reference Interval Normal >/= 90 mL/min/1.73m2 Mildly decreased* 60 - 89 mL/min/1.73m2 Mildly to moderately decreased 45 - 59 mL/min/1.73m2 Moderately to severely decreased 30 - 44 mL/min/1.73m2 Severely decreased 15 - 29 mL/min/1.73m2 Kidney Failure < 15 mL/min/1.73m2 *Relative to young adult level Estimated glomerular filtration rate is determined by the 2020 CKD-EPI equation recommended by the National Kidney Foundation (A Unifying Approach to GFR Estimation: Recommendations of the NKF-ASK Task Force on Reassessing the Inclusion of Race in Diagnosing Kidney Disease, JASN 2020). The CKD-EPI equation should not be used for patients with unstable renal function and has not been validated in children and those over 70. Current interpretive data was last reviewed 2021. Testing performed by: [facility], [address] [place] [address], [place]., [address] Blood 10/03/2024 2:45 PM LEGAL EDITOR 10/03/2024 6:44 PM LEGAL EDITOR Risa Hawthorne MD LAB BLOOD ORDERABLES Final Result Performing Organization Address [facility] de Phone Number LOR [address] [address] [facility] [place] [address] * (ABNORMAL) Cystatin C (10/03/2024 2:45 PM LEGAL EDITOR) Cystatin C 1.27(H) 0.60 - 1.20 mg/L Comment: Interpretive Data Cystatin C concentrations vary widely in the first month of life, particularly in pre-term infants. Concentrations gradually diminish to adult levels by 1 year of life. Concentrations tend to rise with diminishing renal function in individuals greater than 60 years of age. Current Interpretive Data was last revised on 2020. Testing performed by: [facility], [place]., [address] Blood 10/03/2024 2:45 PM LEGAL EDITOR 10/04/2024 9:48 AM LEGAL EDITOR Risa Hawthorne MD LAB BLOOD ORDERABLES Final Result Performing Organization Address [facility] de Phone Number LOR SANDRA [address] [place] [address] * Urinalysis reflex to microscopic (10/03/2024 2:45 PM LEGAL EDITOR) Color, ur Yellow Yellow Comment:Testing performed by : [address] [address] Clarity, ur Clear Clear [facility] Comment:Testing performed by : [address] [address] Specific gravity, ur 1.022 1.003 - 1.030 LOR Comment:Testing performed by : [address] [address] pH, urine 5.5 LOR Comment: Interpretive Data U rine pH is affected by diet, medications, systemic acid-base disturbances, and renal tubular function. pH may affect urinary stone formation. For example, urine pH below 6.0 may help reduce the tendency for calcium phosphate stones and pH greater than 6.0 may reduce the tendency for uric acid stone formation. Source: [facility] Current Interpretive Data was last revised on 2017 Testing performed by: [address] [address] Protein, ur ql Negative Negative [facility] Comment:Testing performed by : [address] [address] Glucose, ur ql Negative Negative [facility] Comment:Testing performed by : [address] [address] Ketones, ur Negative Negative [facility] Comment:Testing performed by : [address], [address] Bilirubin, ur Negative Negative [facility] Comment:Testing performed by : [address], [address] Blood, ur Negative Negative [facility] Comment:Testing performed by : [address], [address] Urobilinogen, ur <2.0 <2.0 mg/dL [facility] Comment:Testing performed by : [address] [address] Nitrite, ur Negative Negative [facility] Comment:Testing performed by : [address], [address] Leukocyte esterase, ur Negative Negative [facility] Comment:Testing performed by : [address], [address] UA reflex comment Reflex conditions for microscopic UA not met. [facility] Comment:Testing performed by : [address], [address] Urine 10/03/2024 2:45 PM LEGAL EDITOR 10/03/2024 6:22 PM LEGAL EDITOR us Risa Hawthorne MD LAB URINE ORDERABLES Final Result LOR [address] [address] [place] [address] * Methylmalonic acid, serum (10/03/2024 2:45 PM LEGAL EDITOR) MMA 0.23 <=0.40 nmol/mL [place] [facility] Comment: ADDITIONAL INFORMATION This test was developed and its performance characteristics determined by [facility] in a manner consistent with CLIA requirements. This test has not been cleared or approved by the U.S. Food and Drug Administration. Test Performed by: [place] [address] Scrapper: Nelia David Ph.D.; CLIA# [id number] Testing performed by: [facility], [address] [place] [address]., [address] Blood 10/03/2024 2:45 PM LEGAL EDITOR 10/03/2024 6:22 PM LEGAL EDITOR us Risa Hawthorne MD LAB BLOOD ORDERABLES Final Result Performing Organization Address City/[facility]/ZIP Co de Phone Number LOR SANDRA [address] [place] [address] [place] [facility] * Hepatitis B core antibody, total Blood (10/03/2024 2:45 PM LEGAL EDITOR) [facility] Hep B core IgG/IgM Nonreactive Nonreactive Comment:Testing performed by : [facility], [address] [place] [address]., [address] Blood 10/03/2024 2:45 PM LEGAL EDITOR 10/04/2024 9:57 AM LEGAL EDITOR us Risa Hawthorne MD LAB MICROBIOLOGY - GENERAL ORDERABLES Final Result Performing Organization Address City/[facility]/ZIP Co de Phone Number LOR [address] [place] [address] * Hepatitis B surface antibody (immune status) Blood (10/03/2024 2:45 PM LEGAL EDITOR) [facility] HBsAb (immune status) Nonreactive Comment: Interpretive Data Nonreactive: This result is consistent with a lack of immunity to Hepatitis B Virus when used in the setting of routine screening. Equivocal: The immune status of the individual should be further assessed, if appropriate, after consideration of clinical status, risk factors, and additional diagnostic information. Reactive: This result is consistent with immunity to Hepatitis B Virus when used in the setting of routine screening. Current interpretive data was last revised on 19. Testing performed by: [facility], [address] [place] [address]., [address] Blood 10/03/2024 2:45 PM LEGAL EDITOR 10/03/2024 6:22 PM LEGAL EDITOR us Risa Hawthorne MD LAB MICROBIOLOGY - GENERAL ORDERABLES Final Result Performing Organization Address [facility] Co de Phone Number LOR [address] [place] [address] * Hepatitis B Surface Antigen Blood (10/03/2024 2:45 PM LEGAL EDITOR) HepBsAg Nonreactive Nonreactive Comment:Testing performed by : [address] [address] Blood 10/03/2024 2:45 PM LEGAL EDITOR 10/03/2024 6:22 PM LEGAL EDITOR us Risa Hawthorne MD LAB MICROBIOLOGY - GENERAL ORDERABLES Final Result Performing Organization Address [facility] Co de Phone Number ELEN[address] [place] [address] * TSH (10/03/2024 2:45 PM LEGAL EDITOR) Thyroid Stimulating Hormone 1.30 0.30 - 4.20 mcIUnit/mL Comment:Testing performed by : [address] [address] Blood 10/03/2024 2:45 PM LEGAL EDITOR 10/03/2024 6:22 PM LEGAL EDITOR us Risa Hawthorne MD LAB BLOOD ORDERABLES Final Result Performing Organization Address City/[facility] Co de Phone Number LOR SANDRA [address] [address] [place] [address] * T4, free (10/03/2024 2:45 PM LEGAL EDITOR) [facility] Free T4 0.94 0.90 - 1.70 ng/dL Comment:Testing performed by : [facility], [address] [place] [address]., [id number] Blood 10/03/2024 2:45 PM LEGAL EDITOR 10/03/2024 6:22 PM LEGAL EDITOR us Risa Hawthorne MD LAB BLOOD ORDERABLES Final Result Performing Organization Address [facility] Co de Phone Number LOR [address] [address] [place] [address] * Vitamin B12 (10/03/2024 2:45 PM LEGAL EDITOR) [facility] Vitamin B12 569 230 - 1,250 pg/mL Comment:Testing performed by : [facility] [facility], [address] [place] [address]., [address] Blood 10/03/2024 2:45 PM LEGAL EDITOR 10/03/2024 6:22 PM LEGAL EDITOR us Risa Hawthorne MD LAB BLOOD ORDERABLES Final Result Performing Organization Address [facility] de Phone Number LOR [address] [address] Department [place] [address] * Renal function panel (10/03/2024 2:45 PM LEGAL EDITOR) [facility] Sodium 138 135 - 145 mmol/L Comment:Testing performed by : [facility], [address] [place] [address]., [address] Potassium, pl 4.5 3.3 - 4.9 mmol/L LOR Comment:Testing performed by : [facility], [address] [place] [address]., [address] Chloride 104 97 - 110 mmol/L LOR Comment:Testing performed by : [facility], [address] [place] [address]., [address] CO2 23 22 - 32 mmol/L CERNER CH Comment:Testing performed by : [facility], [address] [place] [address]., [address] Anion gap 11 2 - 15 mmol/L [facility]ERNER CH Comment:Testing performed by : [facility], [address] [place] [address]., [address] BUN 16 6 - 25 mg/dL CERNER CH Comment:Testing performed by : [facility], [address] [place] [address], [address] Creatinine 1.22 0.80 - 1.30 mg/dL CERNER CH Comment:Testing performed by : [facility], [address] [place] [address], [address] Glucose 118 70 - 199 mg/dL CERNER CH Comment: Interpretive Data Fasting glucose >/= 126 mg/dl is diagnostic for diabetes. Fasting is defined as no caloric intake for at least 8 hours. Fasting glucose between 100 mg/dl to 125 mg/dl is diagnostic of prediabetes. In a patient with classic symptoms of hyperglycemia or hyperglycemic crisis, a random glucose >/= 200 mg/dl is diagnostic for diabetes. In the absence of unequivocal hyperglycemia, results should be confirmed by repeat testing. The classification and Diagnosis of Diabetes Diabetes Care 202; 46: S19-S40. Current interpretive data was last revised 2022. Testing performed by: [facility], [address] [place] [address]., [address] Calcium 9.3 8.5 - 10.3 mg/dL CERNER CH Comment:Testing performed by : [address] [address] Phosphorus, pl 3.4 2.3 - 4.5 mg/dL CERNER CH Comment:Testing performed by : [address] [address] Albumin 4.1 3.5 - 5.0 g/dL CERNER CH Comment:Testing performed by : [address] [address] Blood 10/03/2024 2:45 PM LEGAL EDITOR 10/03/2024 6:22 PM LEGAL EDITOR Risa Hawthorne MD LAB BLOOD ORDERABLES Final Result LOR SANDRA [address] [address] [place] [address] * (ABNORMAL) eGFR (09/27/2024 10:32 AM LEGAL EDITOR) eGFR 51(L) >=60 mL/min/1. 73 m2 Comment: Interpretive Data Reference Interval Normal >/= 90 mL/min/1.73m2 Mildly decreased* 60 - 89 mL/min/1.73m2 Mildly to moderately decreased 45 - 59 mL/min/1.73m2 Moderately to severely decreased 30 - 44 mL/min/1.73m2 Severely decreased 15 - 29 mL/min/1.73m2 Kidney Failure < 15 mL/min/1.73m2 *Relative to young adult level Estimated glomerular filtration rate is determined by the 2020 CKD-EPI equation recommended by the National Kidney Foundation (A Unifying Approach to GFR Estimation: Recommendations of the NKF-ASK Task Force on Reassessing the Inclusion of Race in Diagnosing Kidney Disease, JASN 2020). The CKD-EPI equation should not be used for patients with unstable renal function and has not been validated in children and those over 70. Current interpretive data was last reviewed 2021. Testing performed by: [facility], [address] [place] [address], [place]., [address] Blood 09/27/2024 10:3 2 AM LEGAL EDITOR 09/27/2024 1:29 PM LEGAL EDITOR Risa Hawthorne MD LAB BLOOD ORDERABLES Final Result LOR SANDRA [address] [address] [place] [address] * PSA screen (09/27/2024 10:32 AM LEGAL EDITOR) PSA-Total 2.20 <=5.40 ng/mL Comment: Interpretive Data AGE SEX REFERENCE INTERVAL 0 minutes-150 years Female None 0 minutes-49 years Male None 50-59 years Male 0-3.90 60-69 years Male 0-5.40 70-79 years Male 0-6.20 80-150 years Male 0-6.20 The Dodie PSA Total assay procedure was used. Results from different manufacturers or methods may not be comparable. Serial testing should be performed using the same method. Current interpretive data last revised 22. Testing performed by: [address] [address] Blood 09/27/2024 10:3 2 AM LEGAL EDITOR 09/27/2024 1:22 PM LEGAL EDITOR us Risa Hawthorne MD LAB BLOOD ORDERABLES Final Result Performing Organization Address [facility] Co de Phone Number [place] [phone] [facility] [place] [address] * (ABNORMAL) Uric acid (09/27/2024 10:32 AM LEGAL EDITOR) Uric acid 2.9(L) 3.0 - 8.0 mg/dL Comment:Testing performed by : [address] [address] Blood 09/27/2024 10:3 2 AM LEGAL EDITOR 09/27/2024 1:22 PM LEGAL EDITOR us Risa Hawthorne MD LAB BLOOD ORDERABLES Final Result Performing Organization Address [facility] de Phone Number [place] [phone] [facility] [place] [address] * (ABNORMAL) Lipid panel (09/27/2024 10:32 AM LEGAL EDITOR) Cholesterol 108 30 - 199 mg/dL Comment: Interpretive Data Ages < or = 19 years Acceptable: <170 mg/dL Borderline high: 170-199 mg/dL High: >or= 200 mg/dL Ages > or = 20 years Desirable: <200 mg/dL Borderline high: 200-239 mg/dL High: >or= 240 mg/dL Literature References: 1. Expert Panel on Integrated Guidelines for Cardiovascular Health and Risk Reduction in Children and Adolescents. Pediatrics 2011;128:S213 2. NCEP Expert Panel. Circulation 2004;110:227 Current Interpretive Data was last revised on 2018. Testing performed by: [address] [place]., [address] Triglycerides 299(H) <=149 mg/dL LOR Comment: Interpretive Data Ages < or = 9 years Acceptable: <75 mg/dL Borderline high: 75-99 mg/dL High: >or= 100 mg/dL Ages 10 to 20 years Acceptable: <90 mg/dL Borderline high: 90-129 mg/dL High: >or= 130 mg/dL Ages > or = 20 years Desirable: <150 mg/dL Borderline high: 150-199 mg/dL High: 200-499 mg/dL Very high: >or= 499 mg/dL Literature References: 1. Expert Panel on Integrated Guidelines for Cardiovascular Health and Risk Reduction in Children and Adolescents. Pediatrics 2011;128:S213 2. NCEP Expert Panel. Circulation 2004;110:227 Current Interpretive Data was last revised on 2018. Testing performed by: [address] [address] HDL 24(L) >=40 mg/dL LOR Comment: Interpretive Data Ages < or = 19 years Acceptable: >45 mg/dL Borderline low: 40-45 mg/dL Low: <40 mg/dL Ages > or = 20 years Desirable: >or= 60 mg/dL Low: <40 mg/dL Literature References: 1. Expert Panel on Integrated Guidelines for Cardiovascular Health and Risk Reduction in Children and Adolescents. Pediatrics 2011;128:S213 2. NCEP Expert Panel. Circulation 2004;110:227 Current Interpretive Data was last revised on 2018. Testing performed by: [facility], [address] [place] [address]., [address] LDL, calculated 39 <=129 mg/dL LOR Comment: Interpretive Data Ages < or = 19 years Acceptable: <110 mg/dL Borderline high: 110-129 mg/dL High: >or= 130 mg/dL Ages > or = 20 years Optimal: <100 mg/dL Near optimal: 100-129 mg/dL Borderline high: 130-159 mg/dL High: >160 mg/dL Calculated using the Carney LDL-C estimating equation. This equation was implemented on 2024. Prior to this date LDL-C was estimated using the Friedewald equation. Literature References: 1. Expert Panel on Integrated Guidelines for Cardiovascular Health and Risk Reduction in Children and Adolescents. Pediatrics 2011;128:S213 2. NCEP Expert Panel. Circulation 2004;110:227 3. Carney M et al. LEXX Cardiol. 2020 January 12;5(5):540-548. doi: 10.1001/jamacardio.2020.0013 Current Interpretive Data was last revised on 2024. Testing performed by: [address] [address] Non-HDL Cholesterol 84 mg/dL LOR Comment: Interpretive Data Ages < or = 19 years Acceptable: <120 mg/dL Borderline high: 120-144 mg/dL High: >145 mg/dL Ages > or = 20 years When triglycerides are >200 mg/dL, Non-HDL cholesterol is a secondary target of therapy with treatment goals that are 30 mg/dL greater than the LDL cholesterol target. Literature References: 1. Expert Panel on Integrated Guidelines for Cardiovascular Health and Risk Reduction in Children and Adolescents. Pediatrics 2011;128:S213 2. NCEP Expert Panel. Circulation 2004;110:227 Current Interpretive Data was last revised on 2018. Testing performed by: [address] [address] Chol/HDL ratio 4 LOR Comment:Testing performed by : [address] [address] Blood 09/27/2024 10:3 2 AM LEGAL EDITOR 09/27/2024 1:22 PM LEGAL EDITOR Risa Hawthorne MD LAB BLOOD ORDERABLES Final Result [address] Department [place] [address] * (ABNORMAL) Comprehensive metabolic panel (09/27/2024 10:32 AM LEGAL EDITOR) [facility] Sodium 140 135 - 145 mmol/L Comment:Testing performed by : [address] [address] Potassium, pl 4.6 3.3 - 4.9 mmol/L LOR Comment:Testing performed by : [address] [address] Chloride 107 97 - 110 mmol/L CERNER CH Comment:Testing performed by : [address] [address] CO2 22 22 - 32 mmol/L CERNER CH Comment:Testing performed by : [address], [address] Anion gap 11 2 - 15 mmol/L CERNER CH Comment:Testing performed by : [address], [address] BUN 24 6 - 25 mg/dL CERNER CH Comment:Testing performed by : [address], [address] Creatinine 1.47(H) 0.80 - 1.30 mg/dL CERNER CH Comment:Testing performed by : [address], [address] Glucose 91 70 - 199 mg/dL CERNER CH Comment: Interpretive Data Fasting glucose >/= 126 mg/dl is diagnostic for diabetes. Fasting is defined as no caloric intake for at least 8 hours. Fasting glucose between 100 mg/dl to 125 mg/dl is diagnostic of prediabetes. In a patient with classic symptoms of hyperglycemia or hyperglycemic crisis, a random glucose >/= 200 mg/dl is diagnostic for diabetes. In the absence of unequivocal hyperglycemia, results should be confirmed by repeat testing. The classification and Diagnosis of Diabetes Diabetes Care 202; 46: S19-S40. Current interpretive data was last revised 2022. Testing performed by: [address] [address] Calcium 9.2 8.5 - 10.3 mg/dL CERNER CH Comment:Testing performed by : [address] [address] Bilirubin, total 0.2 0.1 - 1.2 mg/dL CERNER CH Comment:Testing performed by : [address] [address] Protein, pl 7.9 6.5 - 8.5 g/dL CERNER CH Comment:Testing performed by : [address], [address] Albumin 4.2 3.5 - 5.0 g/dL CERNER CH Comment:Testing performed by : [address], [place]., [address] Alk phos 125 40 - 130 Units/L [facility] Comment:Testing performed by : [facility], [address] [place] [address]., [address] ALT 18 7 - 55 Units/L [facility] Comment:Testing performed by : [facility], [address] [place] [address], [address] AST 24 10 - 50 Units/L [facility] Comment:Testing performed by : [address] [address] Blood 09/27/2024 10:3 2 AM LEGAL EDITOR 09/27/2024 1:22 PM LEGAL EDITOR Risa Hawthorne MD LAB BLOOD ORDERABLES Final Result Performing Organization Address [facility] de Phone Number [address] [place] [address] * Hepatitis C antibody (06/25/2022 11:48 AM CDT) Hep C Ab Nonreactive Nonreactive [facility] Comment: Interpretive Data Nonreactive: Antibodies to HCV not detected. Does NOT exclude the possibility of recent exposure to HCV. Equivocal: Equivocal for HCV antibodies. Supplemental molecular testing will be automatically performed to determine infection status in accordance with current CDC screening recommendations. Reactive: Positive for HCV antibodies. This may represent current or past HCV infection. Supplemental molecular testing will be automatically performed to determine current infection status in accordance with current CDC screening recommendations. Interpretive data was last revised on 2019. Blood 06/25/2022 11:4 8 AM CDT 06/25/2022 2:36 PM CDT Kamilah Lozano MD LAB MICROBIOLOGY - GENERAL ORDER MICHELLE Edited Result - Final Performing Organization Address [facility] Co de Phone Number [facility] [address] [facility] [place] [address] * COLONOSCOPY (11/25/2021 10:12 AM CDT) Anatomical Region Laterality Modality Other Narrative Procedure Note Alf Hernandez MD - 11/25/2021 10:12 AM CDT [facility] Patient Name: Deyvi Lozada Procedure Date: 11/25/2021 10:12 AM Date of : 1955 Admit Type: Outpatient Age: 66 Gender: Male Attending MD: Alf Hernandez M.D. Room: [facility] 2 Note Status: Finalized Patient Profile: Refer to note in patient chart for documentation of history and physical. Procedure: Colonoscopy Indications: High risk colon cancer surveillance: Personalhistory of colonic polyps, Last colonoscopy: February 2016 Referring MD: Risa Hawthorne M.D. Providers: Alf Hernandez M.D. Impression: - Hemorrhoids found on perianal exam. - Two 4 to 5 mm polyps in the transverse colon, removed with a cold snare. Resected andretrieved. - Diverticulosis in the sigmoid colon. - The examination was otherwise normal. Recommendation: - Discharge patient to home. - Resume previous diet. - Continue present medications. - Await pathology results. - Repeat colonoscopy in 5 years for surveillance. - Return to primary care physician as previously scheduled. Medicines: Propofol per Anesthesia Complications: No immediate complications. Estimated Blood Loss: Estimated blood loss: none. Procedure: Pre-Anesthesia Assessment: - This assessment was completed [Time ofAssessment] prior to the administration of sedation. The benefits, risks and alternatives of theprocedure and sedation were discussed and informed consentwas obtained. All questions were answered. Please referto the signed informed consent document in the medical record. The bowel preparation used was Miralax and bisacodyl tablets via single dose instruction. The scope was passed under direct vision. TheColonoscope [id number] was introduced through the anus and advanced to the the cecum, identified by appendiceal orifice and ileocecal valve. The colonoscopy was performed without difficulty. The patient tolerated the procedure well. The qualityof the bowel preparation was adequate to identifypolyps 6 mm and larger in size. The ileocecal valve, appendiceal orifice, and rectum werephotographed. Findings: Hemorrhoids were found on perianal exam. Two sessile polyps were found in the transverse colon. The polypswere 4 to 5 mm in size. These polyps were removed with a cold snare.Resection and retrieval were complete. Verification of patient identificationfor the specimen was done by the physician and nurse using the patient's name and date. Estimated blood loss was minimal. Multiple small and large-mouthed diverticula were found in thesigmoid colon. The exam was otherwise without abnormality. Electronically signed by Alf Hernandez M.D. Alf Hernandez M.D. 11/25/2021 12:07:41 PM Number of Addenda: 0 Note Initiated On: 11/25/2021 10:12 AM Procedure Code(s): --- Professional --- [address]25, Colonoscopy, flexible; with removal of tumor(s), polyp(s), or other lesion(s) by snare technique Diagnosis Code(s): --- Professional --- K57.30, Diverticulosis of large intestine without perforation orabscess without bleeding D12.3, Benign neoplasm of transverse colon (hepatic flexure orsplenic flexure) K64.9, Unspecified hemorrhoids Z86.010, Personal history of colonic polyps CPT copyright 2020 [employer]. All rights reserved. The codes documented in this report are preliminary and upon insurance coder reviewmay be revised to meet current compliance requirements. Recognized by the [employer] for promoting quality in endoscopy Alf Hernandez MD ENDOSCOPY PROCEDURES Final Re sult from Last 3 Months or Most Recently Relevant to Health Maintenance Insurance COMMERCIAL GENERIC MEDICARE MEDICARE AETNA SENIOR SUPPLEMENT MEDICARE T SENIOR SUPPLEMENT MEDICARE AETNA SENIOR SUPPLEMENT Advance Directives For more information, please contact: [phone] Documents on File Type Date Recorded Patient Fire Information Officer Expl anation ADVANCE DIRECTIVE 04/11/2020 DNR ADVANCE DIRECTIVE 06/10/2011 POWER OF A TTORNEY-MEDICAL ADVANCE DIRECTIVE 06/10/2011 POWER OF A [employer]TORNEY-[employer]ICAL * Full Code (Latest Code Status on File) Date Activated Date Inactivated Comments 01/24/2022 11:04 AM 01/24/2022 4:47 PM * Full Code Date Activated Date Inactivated Comments 01/24/2022 10:33 AM 01/24/2022 11:04 AM * Full Code Date Activated Date Inactivated Comments 11/25/2021 10:10 AM 11/25/2021 4:56 PM * Full Code Date Activated Date Inactivated Comments 11/25/2021 10:10 AM 11/25/2021 10:10 AM * Full Code Date Activated Date Inactivated Comments 07/19/2020 7:44 AM 07/19/2020 1:20 PM Care Teams Virtual Classroom Manager Relationship Specialty Start Date End Date Risa Hawthorne MD PCP - General 12/12/16 Alf Hernandez MD [address] [place] [address] Gastroenterology 03/25/17 Brennon Hollis DPM [address] [place] [address] Orthotics 03/25/17 Js Khalil MD [address] [facility] [address] [place] [address] Referring Physician Transplant Hepatology 10/08/20 Lisy Lacey MD [address] [facility] [address] [place] [address] Consulting Physician Neurology 11/28/20 Thom Mendoza OD [address] [place] [address] Optometry 12/03/21 Kamilah Lozano MD [address] [place] [address] Medical Oncologist/Bulb Grower Medical Oncology 08/06/22 Marycarmen Larios MD [address] [place] [address] Consulting Physician Plastic Surgery 12/26/22 Bj Gomez MD [address] [place] [address] Consulting Physician Anesthesiology 07/02/23 Gallo West MD [address] [place] [address] DR HUSSAIN Elena [address] [address] Surgeon Orthopedic Surgery 01/07/24 Phill Portillo MD [address] [place] [address] Orthopedic Surgery 10/03/21
--- OUTSIDE RECORDS SUMMARY | 2024-12-23 12:32 | XMS_ITS | Continuity of Care Document ---
Author Organization [facility] Address [address] [place] [address] [place] [address] Phone Care Team Providers Care Brass Instrument Repair Technician Name Role Phone Alvarado Flores MD Unavailable Unavailable Advance Directives Directive Yes / No Effective Date File Name No Information Encounters Encounter Description Practice Location Reason(s) For Visit Diagnoses Date Provider Providers Copied on Encounter [facility], [address], [place], [place], [id number], [place] tel:[phone] [facility] Professional No Information [address] Mark Childers. [address] [facility], [address], [place], [place], [id number], [place]. tel:[phone] Referring Provider: Risa Hawthorne MD, [address], [place], [address]. tel:[phone] Family History Family Member Type Diagnosis Age At Onset No Information Payers Payer name Insurance type Covered constitution party ID Authoriza tiелена(s) [facility] Commercial CI [id number] Social History Type Description Quantity Date Captured Comments Sex Male Smoking Status No Information Chief Complaint And Reason For Visit No Information Reason For Referral Reason For Referral No Information History Of Present Illness Encounter Date Complaint History Of Prese nt Illness No Information Functional Status Date Functional Assessmen t No Information Instructions Date Instruction Additional Infor mation No Information Assessments Type Assessment Date No Information Patient Care Teams Name Effective Dates (start - stop) Status Members No Information
--- OUTSIDE RECORDS SUMMARY | 2024-12-23 12:32 | XMS_ITS | Clinical Summary ---
Author Organization [facility] Address [address] [place] [address] Phone Care Team Providers Care Maid Cleaning Cooking Name Role Phone Risa Hawthorne MD Primary Care Provider [phone] Moustapha Hunter DPM Unavailable [phone] Allergies No known active allergies Medications amoxicillin-cla vulanate (AUGMENTIN) 875-125 MG Tablet Take 1 Tab by mouth 2 times daily. 03/25/2017 Active atenolol (TENORMIN) 50 MG Tablet Take 1 Tab by mouth daily. 03/19/2017 Active atorvastatin (LIPITOR) 80 MG Tablet Take 1 Tab by mouth every morning. 03/19/2017 Active clonazePAM (KLONOPIN) 0.5 MG Tablet Take 1 Tab by mouth. 2-3 times per day 03/20/2017 Active divalproex (DEPAKOTE ER) 500 MG TABLET SR 24 HR Take 2 Tabs by mouth daily. 03/25/2017 Active fenofibrate 160 MG Tablet Take 1 Tab by mouth daily. 03/20/2017 Active ferrous sulfate 325 (65 Fe) MG Tablet Take 3 Tabs by mouth daily. 4 02/26/2017 Active FLUoxetine (PROZAC) 20 MG Capsule Take 1 Cap by mouth daily. 5 02/22/2017 Active ibuprofen (MOTRIN) 800 MG Tablet Take 1 Tab by mouth as needed. 01/01/2017 Active omeprazole (PRILOSEC) 20 MG CAPSULE DELAYED RELEASE Take 1 Cap by mouth daily. 03/19/2017 Active spironolactone- hydrochlorothia zide (ALDACTAZIDE) 25-25 MG Tablet Take 1 Tab by mouth every morning. 03/19/2017 Active valACYclovir (VALTREX) 1 GM Tablet Take 1 Tab by mouth as needed. 03/19/2017 Active predniSONE (DELTASONE) 20 MG Tablet 3 tablets daily x5 days 15 Tablet 06/25/2022 Active colchicine 0.6 MG Tablet Take 2 tablets at home followed by 1 tablet to 1 hour later. 3 Tablet 06/25/2022 Active docusate sodium (COLACE) 100 MG Capsule Take 1 Capsule by mouth 2 times daily. 60 Capsule 03/29/2024 Active polyethylene glycol (MiraLax) 17 GM/SCOOP Powder Take 17 g by mouth daily. 17 g = 1 scoop. Dissolve in 4 -8 oz of water or other liquid. 225 g 03/29/2024 Active olmesartan (BENICAR) 20 MG Tablet Take 1 Tablet by mouth daily. 30 Tablet 03/29/2024 Active Active Problems Problem Noted Date Diagnosed Date Paronychia of great toe, left 03/26/2017 Pain of left great toe 03/26/2017 Immunizations Immunization Administration Dates Next Due Covid-19, Mrna, Lnp-s, PF, 1 00 mcg/0.5 mL Dose (Moderna) 12/03/2020,10/31/2020 Social History Tobacco Use Types Packs/Day Years Used Date Smoking Tobacco: Former Cigarettes Smokeless Tobacco: Never Tobacco Cessation:Counseling Given: No Alcohol Use Standard Drinks/Week Comments Yes 0 (1 standard drink = 0.6 oz pur e alcohol) socially Sex and Gender Information Value Date Recorded Sex Assigned at Not on file Legal Sex Male 7:32 PM CDT Gender Identity Not on file Sexual Orientation Not on file Last Filed Vital Signs Vital Sign Reading Time Taken Comments Blood Pressure 146/75 03/29/2024 5:30 PM CDT Pulse 67 03/29/2024 5:30 PM CDT Temperature 35.9 C (96.7 F) 03/29/2024 2:21 PM CDT Respiratory Rate 15 03/29/2024 5:30 PM CDT Oxygen Saturation 98% 03/29/2024 5:30 PM CDT Inhaled Oxygen Concentration - - Weight 117.9 kg (260 lb) 03/29/2024 2:21 PM CDT Height 190.5 cm (6' 3 ) 03/29/2024 2:21 PM CDT Body Mass Index 32.5 03/29/2024 2:21 PM CDT Plan of Treatment Health Maintenance Due Date Last Done Comments Cologuard 2005 Immunochemical Fecal Occult Blood 2005 PSA Discussion 2010 Influenza Immunization (#1) 05/15/202406/14, 07/09/2022, 07/16/2021, Additional history exists SARS-COV-2 Immunization ( season) 2024 07/16/2023, 07/09/2022, 07/16/2021, Additional history exists Colonoscopy 11/26/2031 11/25/2021 Colorectal Cancer Screening 11/26/2031 11/25/2021 Hepatitis C Virus (HCV) Screening Completed 02/08/2016 Pneumococcal Immunization (50+ years) Completed 06/05/2021, 04/11/2020 Pneumococcal Immunization Combined Discontinued 06/05/2021, 04/11/2020 DTaP/Tdap/Td Immunization Discontinued 2022, 01/13/2023, 02/08/2016 TdaP Immunization Completed 01/13/2023, 02/08/2016 Zoster Immunization Completed 01/13/2023, 09/22/2022, 07/07/2012 Respiratory Syncytial Virus (RSV) Immunization (Adult) Completed 07/16/2023 Hepatitis B Immunization Aged Out No longer eligible based on patient's age to complete this topic Meningococcal Immunization (ACWY) Aged Out No longer eligible based on patient's age to complete this topic Rotavirus Immunization Aged Out No lo nger eligible based on patient's age to complete this topic Procedures Procedure Name Priority Date/Time Associated Diagnosis Comments HEPATITIS C ANTIBODY Routine 02/08/2016 4:25 PM CDT Iron deficiency anemia secondary to blood loss (chronic) Routine general medical examination at a health care facility (Adult) from Last 3 Months or Most Recently Relevant to Health Maintenance Results * HEPATITIS C ANTIBODY (02/08/2016 4:25 PM CDT) hepatitis C antibody 0.21 <1 S/CO 02/09/2016 8:29 PM CDT [facility] Comment: Signal/Cutoff ratio < 0.79 is Nondetected Signal/Cutoff ratio 0.80-0.99 is Grayzone Signal/Cutoff ratio > 0.99 is Detected Supplemental assays are recommended if signal/cutoff ratio is >/=1.00. Signal/cutoff ratio result >/= 5.00 is 97% predictive of positivity for recombinant immunoblot assay (RIBA) and will be reported to the [place] Department of Public [facility] as required. Blood specimen (specimen) Venipuncture / Unknown 02/08/2016 4:25 PM CDT 02/08/2016 4:36 PM CDT us Risa Hawthorne MD CHEMISTRY ORDERABLES Final Result [facility] [address] [place] [address] from Last 3 Months or Most Recently Relevant to Health Maintenance Insurance MEDICARE PENDING SALE TO [facility] [employer] Care Teams Maid Cleaning Cooking Relationship Specialty Start Date End Date Risa Hawthorne MD [address] [facility] [place] [address] PCP - General Internal Medicine 02/08/16 Moustapha Hunter DPM [address] [facility] [place] [address] Consulting Physician Podiatry 03/26/17
--- OUTSIDE RECORDS SUMMARY | 2024-12-23 12:32 | XMS_ITS | Encounter Summary ---
Author Organization [facility] Address [address] [place] [address] Phone Care Team Providers Care Label Rewinder Name Role Phone Risa Hawthorne MD Primary Care Provider + [phone] Thiago Bunch DMD Unavailable [phone] Alf Hernandez MD Unavailable [phone] Arnaud Garcia MD Unavailable [phone] Wei Jaramillo MD Unavailable [phone] Brennon HollisM Unavailable [phone] Moustapha Sharpe MD Unavailable [phone] Js Khalil MD Unavailable [phone] Lisy Lacey MD Unavailable Thom Mendoza OD Unavailable [phone] Kamilah Lozano MD Unavailable Marycarmen Larios MD Unavailable [phone] Bj Gomez MD Unavailable [phone] Gallo West MD Unavailable [phone] Phill Portillo MD Unavailable [phone] Encounter Details Date Type Department Care Team (Late st Contact Info) Description 11/10/2022 Orders Only [facility] [address] [place] [address] Risa Hawthorne MD [address] [place] [address] Social History Tobacco Use Types Packs/Day Years Used Date Smoking Tobacco: Former Cigarettes Q uit: 09/23/2012 Smokeless Tobacco: Former Alcohol Use Standard Drinks/Week Comments Yes 6 (1 standard drink = 0.6 oz pur e alcohol) AUDIT-C Answer Date Recorded Q1: How often do you have a drink containing alc ohol? 2-4 times a month 01/24/2022 Q2: How many drinks containi ng alcohol do you have on a typical day when you are drinking? 3 or 4 01/24/2022 Q3: How often do you have si x or more drinks on one occasion? 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 Not on file Not on file documented as of this encounter Plan of Treatment Not on file documented as of this encounter Procedures Procedure Name Priority Date/Time Associated Diagnosis Comments SCAN - RADIOLOGY/IMAGING 11/10/2022 documented in this encounter Results * SCAN - RADIOLOGY/IMAGING (11/10/2022) Anatomical Region Laterality Modality Other us Risa Hawthorne MD Final Resu lt documented in this encounter Visit Diagnoses Not on filedocumented in this encounter Care Teams Label Rewinder Relationship Specialty Start Date End Date Risa Hawthorne MD PCP - General 12/12/16 Thiago Bunch DMD Dental Mine Wirer 03/25/17 Alf Hernandez MD [address] [facility] [address] [place] [address] Gastroenterology 03/25/17 Arnaud Garcia MD [address] [facility] [facility] [address] [place] [address] Psychiatry 03/25/17 01/06/24 Wei Jaramillo MD [address] [place] [address] Orthopedic Surgery 03/25/17 12/25/22 Brennon Hollis DPM [address] [place] [address] Orthotics 03/25/17 Moustapha Sharpe MD [address] [place] [address] Anesthesiologist Anesthesiology 04/08/20 12/25/22 Js Khalil MD [address] [address] Referring Physician Transplant Hepatology 10/08/20 Lisy Lacey MD [address] [address] Consulting Physician Neurology 11/28/20 Thom Mendoza OD [address] [place] [place] [address] Optometry 12/03/21 Kamilah Lozano MD [address] [place] [address] Medical Oncologist/Community Engagement Representative Medical Oncology 08/06/22 Marycarmen Larios MD [address] [place] [address] Consulting Physician Plastic Surgery 12/26/22 Bj Gomez MD [address] [place] [address] Consulting Physician Anesthesiology 07/02/23 Gallo West MD [address] [place] [address] DR HUSSAIN Elena [address] [address] Surgeon Orthopedic Surgery 01/07/24 Phill Portillo MD [address] [place] [address] Orthopedic Surgery 10/03/21 documented as of this encounter
--- OUTSIDE RECORDS SUMMARY | 2024-12-23 12:32 | XMS_ITS | Referral Summary ---
Author Organization [facility] Address [address] [place] [address] Care Team Providers Care Field Underwriter Name Role Phone Risa Hawthorne MD Primary Care Provider + [phone] Alf Hernandez MD Unavailable [phone] Brennon HollisM Unavailable [phone] Js Khalil MD Unavailable [phone] Lisy Lacey MD Unavailable Thom Mendoza OD Unavailable [phone] Kamilah Lozano MD Unavailable Marycarmen Larios MD Unavailable + [phone] Bj Gomez MD Unavailable [phone] Gallo West MD Unavailable [phone] Phill Portillo MD Unavailable [phone] Encounters Date Type Department Care Team Description 12/19/2024 Results Follow-Up [facility] [address] [place] [address] Ernestina Celestin NP 12/16/2024 Telephone [facility] [address] [place] [phone] Risa Hawthorne MD 12/14/2024 11:00 AM CDT Ancillary Procedure [facility] [address] [facility] [address] [place] [address] Primary osteoarthritis of right hip 12/14/2024 11:00 AM CDT Office Visit [facility] [address] [facility] [address] [place] [address] Ernestina Celestin NP Primary osteoarthritis of right hip (Primary Dx); Obesity (BMI 30-39.9); Degenerative lumbar spinal stenosis 10/31/2024 7:46 AM SAMPLING THEORY TEACHER - 10/31/2024 11:59 PM SAMPLING THEORY TEACHER Hospital Encounter [facility] [address] [facility] [address] [place] [address] Discharge Disposition: Discharge to home or self care 10/31/2024 11:15 AM SAMPLING THEORY TEACHER Office Visit [facility] [address] [facility] [address] [place] [address] Reynaldo Smiley PA Primary osteoarthritis of left shoulder (Primary Dx); Biceps tendonitis, left; Spasm of left trapezius muscle 10/18/2024 12:00 PM SAMPLING THEORY TEACHER Ancillary Procedure [facility] [address] [facility] [address] [place] [address] Encounter for abdominal aortic aneurysm (AAA) screening 10/18/2024 9:30 AM SAMPLING THEORY TEACHER Ancillary Procedure [facility] [address] [facility] [address] [place] [address] Elevated serum creatinine 10/13/2024 9:28 AM SAMPLING THEORY TEACHER - 10/13/2024 11:59 PM SAMPLING THEORY TEACHER Hospital Encounter [facility] 2 [facility] [address] [place] [address] Miguelina Cherry NP Cervical spinal stenosis (Primary Dx); Degenerative lumbar spinal stenosis; Encounter for long-term use of opiate analgesic Discharge Disposition: Discharge to home or self care 10/04/2024 9:25 AM SAMPLING THEORY TEACHER - 10/04/2024 11:59 PM SAMPLING THEORY TEACHER Hospital Encounter [facility] [address] [place] [address] Kyphosis, unspecified kyphosis type, unspecified spinal region; Osteogenesis imperfecta Discharge Disposition: Discharge to home or self care 10/03/2024 2:40 PM SAMPLING THEORY TEACHER Lab [facility] [address] [facility] [address] [place] [address] Memory changes; Need for hepatitis B screening test 10/03/2024 1:00 PM SAMPLING THEORY TEACHER Office Visit [facility] [place] [facility] [address] [facility] [address] [place] [address] Risa Hawthorne MD Class 1 obesity with alveolar hypoventilation, serious comorbidity, and body mass index (BMI) of 33.0 to 33.9 in adult (HCC) (Primary Dx); Annual physical exam; Memory changes; MARYT (obstructive sleep apnea); Chronic left shoulder pain; [...] undrl condition w oth diabetic neuro comp ([facility]); Pseudothrombocytopeni a; Pancytopenia ([facility]) 09/27/2024 10:40 AM SAMPLING THEORY TEACHER Lab [facility] [address] [facility] [address] [place] [address] Benign hypertension; Prostate cancer screening 09/27/2024 2:00 PM SAMPLING THEORY TEACHER Office Visit [facility] [address] [facility] [address] [place] [phone] Lisy Lacey MD Severe obstructive sleep apnea (Primary Dx); Hypersomnia with sleep apnea; Chronic insomnia 09/26/2024 2:45 PM SAMPLING THEORY TEACHER Office Visit [facility] 2 [facility] [address] [place] [phone] Marycarmen Larios MD Wartenberg syndrome (Primary Dx); Radial tunnel syndrome, left; Cubital tunnel syndrome on right; Ulnar tunnel syndrome of right wrist from Last 3 Months Allergies No known active allergies Medications senna (SENOKOT) 8.6 mg tablet Take 1-2 tabs nightly for chronic constipation management. 180 tablet 3 024 Active Additional Information Patient not taking.Reported on 12/14/2024 allopurinoL (ZYLOPRIM) 300 mg tabletIndications :Gouty arthritis Take 1 tablet (300 mg total) by mouth daily 90 tablet 3 Active sildenafiL, pulm.hypertension , (REVATIO) 20 mg tabletIndications :ED (erectile dysfunction) of organic origin Take 2 tablets (40 mg total) by mouth as needed (ED) ON AN EMPTY STOMACH 60 tablet 5 025 Active olmesartan (BENICAR) 20 mg tabletIndications :Benign [...] needed for muscle spasms 30 tablet 2 025 2024 Active gabapentin (NEURONTIN) 300 mg capsuleIndication s:Degenerative lumbar spinal stenosis,Lumbar radiculopathy Take 1 capsule (300 mg total) by mouth 3 (three) times a day 90 capsule 2 025 2024 Active zolpidem CR (AMBIEN CR) 6.25 mg CR tablet TAKE 1 TABLET BY MOUTH AT BEDTIME NEEDED FOR SLEEP 30 tablet Active meloxicam (MOBIC) 7.5 mg tabletIndications :Primary [...] Current meds: None for hip pain; takes Chester for chronic back pain per pain management [...] completed PT with minimal improvement of pain Chester per pain management q.6 hours PRN Discussed potential of lumbar stenosis contributing to right hip pain Assessment & Plan (04/13/2023 9:13 AM CDT): Lost his long-term pain management physician at [facility] in a new in his not arrived yet. Having difficulty with legs becoming painful and numb when walking. This is interfering with his activities and consult attendance. He is advised to get a wheeled walker. He qualifies for DMV paperwork which is established for permanent disability [...] Chronic problem, controlled on current regimen including Chester-Followed by pain management. C/o constipation as described above. Abdomen diffusely distended on exam today. No other acute findings on exam, vitals stable. Recent ER workup unremarkable. Continue current pain management recommendations and use Chester only as needed, as this is likely [...] (12/31/2021): Added automatically from request for surgery [id number] Abnormal CT of liver 06/19/2020 Overview (08/06/2022): [...] CONSULTATION NOVEMBER 2021 Irene Velez RN Stabell, Risa Moreno MD Morning Dr Hawthorne. I am one of the RNs in [...] Hepatology Nurse Coordinator for Dr. [place] Mota [phone] Condition found incidentally during pneumonia evaluation at [...] right is most noticeable at C5-C6. Otto MoranO. T: 10/14/2019 11:05 AM Insomnia secondary to [...] the anterolisthesis. Findings are stable. There is [id number] right and mild left foraminal narrowing. C5-C6: [...] issue being followed by dr. Sharpe at [facility]. Patient states they are wanting to do more spinal injections and possibly surgery but they will not until we figure out his Thrombocytopenia. Continue Chester as directed by pain management. Refused additional PT. Heat/ice as tolerated. Keep follow with pain management in [address] hawthorne in 1 month, sooner if needed. Pseudothrombocytopenia 03/30/2019 Assessment & Plan (08/28/2022 1:17 PM SAMPLING THEORY TEACHER): Chronic problem Patient had recent blood draw [...] disease) Assessment & Plan (10/05/2019 3:28 PM SAMPLING THEORY TEACHER): Continue present regimen symptoms well controlled. MARTY [...] hyperlipidemia Assessment & Plan (10/05/2019 3:29 PM SAMPLING THEORY TEACHER): LDL well controlled on recent labs. HDL [...] diet. Assessment & Plan (08/04/2023 1:05 PM SAMPLING THEORY TEACHER): BP stable in office today on current therapy after stopping olmesartan. No acute findings on exam. Never got labs done ordered 2 weeks ago. Continue current regimen and low salt diet. Assessment & Plan (09/12/2022 1:55 PM SAMPLING THEORY TEACHER): EKG performed in office prior to upcoming [...] needed. Assessment & Plan (10/05/2019 3:27 PM SAMPLING THEORY TEACHER): Blood pressure is well controlled will continue [...] constipation in office today and advised that Chester use can worsen these symptoms. Continue both [...] 09/12/202205/12 Assessment & Plan (09/12/2022 1:54 PM SAMPLING THEORY TEACHER): Upcoming neck surgery scheduled for 09/25/2022 with [...] surgical clearance and EKG to [facility] - number underlined on form Orders for [...] (07/08/2021): Added automatically from request for surgery [id number] Platelets decreased 04/24/2021 07/03/20 Assessment & Plan [...] nausea-- he must to to the ER joo if out of town. He verbalizes understanding. [...] 04/13/2023 Assessment & Plan (10/30/2022 1:56 PM SAMPLING THEORY TEACHER): Acute problem, present times a couple days [...] 04/08/2020 Assessment & Plan (10/05/2019 3:31 PM SAMPLING THEORY TEACHER): With successful irrigation of the left ear. [...] 04/08/2020 Assessment & Plan (10/05/2019 3:27 PM SAMPLING THEORY TEACHER): Patient reports pain in his left shoulder [...] anxiety 09/19/2017 01/07/2024 Overview (01/07/2024): Early Disability long term from work due to this problem, Care [...] CTS (carpal tunnel syndrome) Back pain 04/13/2023 Immunizations Immunization Administration Dates Next Due COVID-19 [...] 01/13/2023,02/08/2016 ZOSTER LIVE 07/07/2012 ZOSTER Recombinant 01/13/2023,09/22/2022 Social History Tobacco Use Types Packs/Day Years [...] on file Legal Sex Male 12:30 AM SAMPLING THEORY TEACHER Gender Identity Male 06/05/2023 7:29 AM CDT Sexual Orientation Straight 06/05/2023 7: 29 AM CDT 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 Not on file Not on file Not on file Last Filed Vital Signs [...] 12/14/2024 10:47 AM CDT Plan of Treatment Not on file Medical Devices Implanted Type Area Nail Machine Operator Device Identifier Shelf Expiration Date Model / Serial / Lot Bone Bone Left: Knee 3M Co Procedures Procedure Name Priority Date/Time Associated Diagnosis Comments XR HIP RIGHT 2 OR 3 VIEWS Schedule Routine, Read Routine (OP Routine) 12/14/2024 11:09 AM CDT Primary osteoarthritis of right hip TN ARTHROCENTESIS ASPIR&/INJ MAJOR JT/BURSA W/O US Routine 10/31/2024 11:15 AM SAMPLING THEORY TEACHER Primary osteoarthritis of left shoulder Biceps tendonitis, left XR SHOULDER LEFT 2 OR MORE VIEWS Routine 10/31/2024 11:03 AM SAMPLING THEORY TEACHER Primary osteoarthritis of left shoulder US ABDOMINAL AORTIC ANEURYSM SCREENING Schedule Routine, Read Routine (OP Routine) 10/18/2024 10:08 AM SAMPLING THEORY TEACHER Encounter for abdominal aortic aneurysm (AAA) screening US BLADDER POST VOID Schedule Routine, Read Routine (OP Routine) 10/18/2024 9:50 AM SAMPLING THEORY TEACHER Elevated serum creatinine DEXA AXIAL SKELETON BONE DENSITY 1 OR MORE SITES Schedule Routine, Read Routine (OP Routine) 10/04/2024 9:50 AM SAMPLING THEORY TEACHER Kyphosis, unspecified kyphosis type, unspecified spinal region Osteogenesis imperfecta EGFR Routine 10/03/2024 2:45 PM SAMPLING THEORY TEACHER Memory changes CYSTATIN C Routine 10/03/2024 2:45 PM SAMPLING THEORY TEACHER Memory changes RENAL FUNCTION PANEL Routine 10/03/2024 2:45 PM SAMPLING THEORY TEACHER Memory changes METHYLMALONIC ACID, SERUM Routine 10/03/2024 2:45 PM SAMPLING THEORY TEACHER Memory changes T4, FREE Routine 10/03/2024 2:45 PM SAMPLING THEORY TEACHER Memory changes TSH Routine 10/03/2024 2:45 PM SAMPLING THEORY TEACHER Memory changes VITAMIN B12 Routine 10/03/2024 2:45 PM SAMPLING THEORY TEACHER Memory changes URINALYSIS AND REFLEX TO MICROSCOPIC Routine 10/03/2024 2:45 PM SAMPLING THEORY TEACHER Memory changes HEPATITIS B CORE ANTIBODY, TOTAL Routine 10/03/2024 2:45 PM SAMPLING THEORY TEACHER Need for hepatitis B screening test HEPATITIS B SURFACE ANTIBODY (IMMUNE STATUS) Routine 10/03/2024 2:45 PM SAMPLING THEORY TEACHER Need for hepatitis B screening test HEPATITIS B SURFACE ANTIGEN Routine 10/03/2024 2:45 PM SAMPLING THEORY TEACHER Need for hepatitis B screening test EGFR Routine 09/27/2024 10:32 AM SAMPLING THEORY TEACHER Benign hypertension LIPID PANEL Routine 09/27/2024 10:32 AM SAMPLING THEORY TEACHER Benign hypertension COMPREHENSIVE METABOLIC PANEL Routine 09/27/2024 10:32 AM SAMPLING THEORY TEACHER Benign hypertension PSA SCREEN Routine 09/27/2024 10:32 AM SAMPLING THEORY TEACHER Prostate cancer screening URIC ACID Routine 09/27/2024 10:32 AM SAMPLING THEORY TEACHER Benign hypertension HEPATITIS C ANTIBODY Routine 06/25/2022 [...] Estefani Machado M.D. LC: CODEY Report ID: [id number] Reading Location: [id number] Procedure Note Rena Machado MD - 12/19/2024 [...] Estefani Machado M.D. LC: CODEY Report ID: [id number] Reading Location: [id number] Ernestina Celestin FRUIT AND VEGETABLE CLASSER IMG XR PROCEDURES Final Res ult * TN ARTHROCENTESIS ASPIR&/INJ MAJOR JT/BURSA W/O US (10/31/2024 11:15 AM SAMPLING THEORY TEACHER) Narrative Reynaldo Smiley PA - 10/31/2024 11:15 AM SAMPLING THEORY TEACHER Reynaldo Smiley PA 10/31/2024 11:59 AM Large [...] the procedure well with no immediate complications Reynaldo LEYVA IN CLINIC/BEDSIDE KAILEE ALATORRE Final Result * XR Shoulder Left 2 or More Views (10/31/2024 11:03 AM SAMPLING THEORY TEACHER) Anatomical Region Laterality Modality Upper Extremities, Shoulder Left Digi bella Radiography Narrative 10/31/2024 11:31 AM SAMPLING THEORY TEACHER Views of the left shoulder reviewed interpreted today. No evidence of fracture or dislocation. Advanced degenerative changes noted at AC and glenohumeral joint spaces with ivah-ek-[id number] changes subchondral sclerosis osteophyte formation. Reynaldo LEYVA IMG XR PROCEDURES Nahomi l Result * US Abdominal Aortic Aneurysm Screening (10/18/2024 10:08 AM SAMPLING THEORY TEACHER) Anatomical Region Laterality Modality Abdomen Ultrasound 10/19/2024 11:0 9 AM SAMPLING THEORY TEACHER Narrative 10/19/2024 11:11 AM SAMPLING THEORY TEACHER EXAM DESCRIPTION: US ABDOMINAL AORTIC ANEURYSM SCREENING [...] Vascular Surgery Guidelines: J Vasc Surgery 2008 Oct 50: s2-s49; updated Sep 2017 J Vasc Surgery 67:2-77 THIS IS AN ELECTRONICALLY VERIFIED FINAL REPORT 10/19/2024 11:11 AM - Electronically signed by Milan Riggins M.D. RB: MARTINA Report ID: [id number] Reading Location: [id number] Procedure Note Milan Riggins MD - 10/19/2024 [...] Milan Riggins M.D. RB: MARTINA Report ID: [id number] Reading Location: [id number] us Risa Hawthorne MD IMG US PROCEDURES Final Re sult * US Bladder Post Void (10/18/2024 9:50 AM SAMPLING THEORY TEACHER) Anatomical Region Laterality Modality Bladder N/A Ultrasound 10/19/2024 11:0 8 AM SAMPLING THEORY TEACHER Narrative 10/19/2024 11:09 AM SAMPLING THEORY TEACHER EXAM DESCRIPTION: US BLADDER POST VOID REASON [...] Milan Riggins M.D. RB: RB Report ID: [id number] Reading Location: [id number] Procedure Note Milan Riggins MD - 10/19/2024 [...] Milan Riggins M.D. RB: MARTINA Report ID: [id number] Reading Location: [place] [address] us Risa Hawthorne MD IMG US PROCEDURES Final Re sult * Dexa Axial Skeleton Bone Density 1 or 2 Site (10/04/2024 9:50 AM SAMPLING THEORY TEACHER) Anatomical Region Laterality Modality Body N/A Other 10/04/2024 3:15 PM SAMPLING THEORY TEACHER Narrative 10/04/2024 3:17 PM SAMPLING THEORY TEACHER EXAM DESCRIPTION: DEXA AXIAL SKELETON BONE DENSITY 1 OR MORE SITES REASON FOR STUDY: 69 y/o year old M with given history of: kyphosis with progressive height loss Osteoporosis screening Height loss Kyphosis Nail Machine Operator/Model: [employer] SL (S/N [id number]) Facility LSC value of 0.022 for the [...] Elmo Gamble M.D. MF: RENEE Report ID: [id number] Reading Location: [id number] Procedure Note Elmo Gamble MD - 10/04/2024 EXAM DESCRIPTION: DEXA AXIAL SKELETON BONE DENSITY 1 OR MORE SITES REASON FOR STUDY: 69 y/o year old M with given history of: kyphosiswith progressive height loss Osteoporosis screening Height loss Kyphosis Nail Machine Operator/Model: [employer] SL (S/N [id number]) Facility LSC value of 0.022 for the [...] Elmo Gamble M.D. MF: RENEE Report ID: [id number] Reading Location: [place] [address] us Risa Hawthorne MD IMG DXA PROCEDURES Final R esult * eGFR (10/03/2024 2:45 PM SAMPLING THEORY TEACHER) eGFR 64 >=60 mL/min/1. 73 m2 Comment: [...] was last reviewed 2021. Testing performed by: [facility], [address] [place] [address]., [facility] Blood 10/03/2024 2:45 PM SAMPLING THEORY TEACHER 10/03/2024 6:44 PM SAMPLING THEORY TEACHER us Risa Hawthorne MD LAB BLOOD ORDERABLES Final Result [facility] [id number] [facility] Department of Laboratories [place] [id number] * (ABNORMAL) Cystatin C (10/03/2024 2:45 PM SAMPLING THEORY TEACHER) Cystatin C 1.27(H) 0.60 - 1.20 mg/L Comment: Interpretive Data Cystatin C concentrations vary widely in the first month of life, particularly in pre-term infants. Concentrations gradually diminish to adult levels by 1 year of life. Concentrations tend to rise with diminishing renal function in individuals greater than 60 years of age. Current Interpretive Data was last revised on 2020. Testing performed by: [place]., [address] Blood 10/03/2024 2:45 PM SAMPLING THEORY TEACHER 10/04/2024 9:48 AM SAMPLING THEORY TEACHER us Risa Hawthorne MD LAB BLOOD ORDERABLES Final Result Performing Organization Address City/State/[facility] Co de Phone Number [address] Department of Laboratories [place], [place] [phone] * Urinalysis reflex to microscopic (10/03/2024 2:45 PM SAMPLING THEORY TEACHER) Color, ur Yellow Yellow Comment:Testing performed by : [address] [address] Clarity, ur Clear Clear LOR Comment:Testing performed by : [address] [address] Specific gravity, ur 1.022 1.003 - 1.030 LOR Comment:Testing performed by : [address] [address] pH, urine 5.5 LOR Comment: Interpretive Data U rine pH is affected by diet, medications, systemic acid-base disturbances, and renal tubular function. pH may affect urinary stone formation. For example, urine pH below 6.0 may help reduce the tendency for calcium phosphate stones and pH greater than 6.0 may reduce the tendency for uric acid stone formation. Source: SDI Current Interpretive Data was last revised on 2017 Testing performed by: [address] [address] Protein, ur ql Negative Negative LOR Comment:Testing performed by : [address] [address] Glucose, ur ql Negative Negative CERNER CH Comment:Testing performed by : [facility], [address] [place] [address]., [address] Ketones, ur Negative Negative CERNER CH Comment:Testing performed by : [facility], [address] [place] [address]., [address] Bilirubin, ur Negative Negative CERNER CH Comment:Testing performed by : [address] [address] Blood, ur Negative Negative CERNER CH Comment:Testing performed by : [facility], [address] [place] [address]., [address] Urobilinogen, ur <2.0 <2.0 mg/dL CERNER CH Comment:Testing performed by : [address] [address] Nitrite, ur Negative Negative CERNER CH Comment:Testing performed by : [address], [address] Leukocyte esterase, ur Negative Negative CERNER CH Comment:Testing performed by : [address], [address] UA reflex comment Reflex conditions for microscopic UA not met. CERNER CH Comment:Testing performed by : [address], [address] Urine 10/03/2024 2:45 PM SAMPLING THEORY TEACHER 10/03/2024 6:22 PM SAMPLING THEORY TEACHER Risa Hawthorne MD LAB URINE ORDERABLES Final Result Performing Organization Address City/State/[facility] Co de Phone Number [facility] [address] [facility] Department [place] [address] * Methylmalonic acid, serum (10/03/2024 2:45 PM SAMPLING THEORY TEACHER) MMA 0.23 <=0.40 nmol/mL [facility] ref Lab Comment: ADDITIONAL INFORMATION This test was developed and its performance characteristics determined by [facility] in a manner consistent with CLIA requirements. This test has not been cleared or approved by the U.S. Food and Drug Administration. Test Performed by: [facility] - [address] [address] Police Matron: Nelia David Ph.D.; CLIA# [id number] Testing performed by: [address] [address] Blood 10/03/2024 2:45 PM SAMPLING THEORY TEACHER 10/03/2024 6:22 PM SAMPLING THEORY TEACHER Risa Hawthorne MD LAB BLOOD ORDERABLES Final Result Performing Organization Address City/[facility]/ZIP Co de Phone Number [facility] [address] [facility] [place] [address] [facility] * Hepatitis B core antibody, total Blood (10/03/2024 2:45 PM SAMPLING THEORY TEACHER) Hep B core IgG/IgM Nonreactive Nonreactive Comment:Testing performed by : [facility], [address] [place] [address]., [address] Blood 10/03/2024 2:45 PM SAMPLING THEORY TEACHER 10/04/2024 9:57 AM SAMPLING THEORY TEACHER Risa Hawthorne MD LAB MICROBIOLOGY - GENERAL ORDERABLES Final Result Performing Organization Address City/[facility] Co de Phone Number [place] [address] [facility] [place] [address] * Hepatitis B surface antibody (immune status) Blood (10/03/2024 2:45 PM SAMPLING THEORY TEACHER) HBsAb (immune status) Nonreactive Comment: Interpretive Data [...] last revised on 19. Testing performed by: [address] [address] Blood 10/03/2024 2:45 PM SAMPLING THEORY TEACHER 10/03/2024 6:22 PM SAMPLING THEORY TEACHER us Risa Hawthorne MD LAB MICROBIOLOGY - GENERAL ORDERABLES Final Result Performing Organization Address [facility] Co de Phone Number [place] [phone] [facility] Department [place] [address] * Hepatitis B Surface Antigen Blood (10/03/2024 2:45 PM SAMPLING THEORY TEACHER) HepBsAg Nonreactive Nonreactive Comment:Testing performed by : [address] [address] Blood 10/03/2024 2:45 PM SAMPLING THEORY TEACHER 10/03/2024 6:22 PM SAMPLING THEORY TEACHER us Risa Hawthorne MD LAB MICROBIOLOGY - GENERAL ORDERABLES Final Result Performing Organization Address [facility] Co de Phone Number [place] [phone] [facility] [place] [address] * TSH (10/03/2024 2:45 PM SAMPLING THEORY TEACHER) Pathologist [facility] Thyroid Stimulating Hormone 1.30 0.30 - 4.20 mcIUnit/mL Comment:Testing performed by : [address] [address] Blood 10/03/2024 2:45 PM SAMPLING THEORY TEACHER 10/03/2024 6:22 PM SAMPLING THEORY TEACHER us Risa Hawthorne MD LAB BLOOD ORDERABLES Final Result Performing Organization Address [facility] Co de Phone Number [place] [phone] [place] [address] * T4, free (10/03/2024 2:45 PM SAMPLING THEORY TEACHER) Pathologist [facility] Free T4 0.94 0.90 - 1.70 ng/dL Comment:Testing performed by : [address] [place] [address] Blood 10/03/2024 2:45 PM SAMPLING THEORY TEACHER 10/03/2024 6:22 PM SAMPLING THEORY TEACHER us Risa Hawthorne MD LAB BLOOD ORDERABLES Final Result Performing Organization Address [facility] Center/[facility] de Phone Number [facility] [address] [facility] [place] [address] * Vitamin B12 (10/03/2024 2:45 PM SAMPLING THEORY TEACHER) [facility] Vitamin B12 569 230 - 1,250 pg/mL Comment:Testing performed by : [facility], [address] [place] [address]., [address] Blood 10/03/2024 2:45 PM SAMPLING THEORY TEACHER 10/03/2024 6:22 PM SAMPLING THEORY TEACHER us Risa Hawthorne MD LAB BLOOD ORDERABLES Final Result Performing Organization Address [facility] de Phone Number [address] [place] [address] * Renal function panel (10/03/2024 2:45 PM SAMPLING THEORY TEACHER) [facility] Sodium 138 135 - 145 mmol/L Comment:Testing performed by : [address] [address] Potassium, pl 4.5 3.3 - 4.9 mmol/L [facility]ER CH Comment:Testing performed by : [address] [address] Chloride 104 97 - 110 mmol/L [facility]ER CH Comment:Testing performed by : [address] [address] CO2 23 22 - 32 mmol/L [facility] CH Comment:Testing performed by : [address] [address] Anion gap 11 2 - 15 mmol/L [facility] CH Comment:Testing performed by : [address] [address] BUN 16 6 - 25 mg/dL CERNER CH Comment:Testing performed by : [address], [place]., [address] Creatinine 1.22 0.80 - 1.30 mg/dL LOR Comment:Testing performed by : [address] [address] Glucose 118 70 - 199 mg/dL LOR Comment: Interpretive Data Fasting glucose >/= 126 [...] classification and Diagnosis of Diabetes Diabetes Care 2021; 46: S19-S40. Current interpretive data was last revised 2022. Testing performed by: [facility], [address] [place] [address]., [address] Calcium 9.3 8.5 - 10.3 mg/dL LOR Comment:Testing performed by : [address] [address] Phosphorus, pl 3.4 2.3 - 4.5 mg/dL LOR Comment:Testing performed by : [address] [address] Albumin 4.1 3.5 - 5.0 g/dL LOR Comment:Testing performed by : [address] [address] Blood 10/03/2024 2:45 PM SAMPLING THEORY TEACHER 10/03/2024 6:22 PM SAMPLING THEORY TEACHER us Risa Hawthorne MD LAB BLOOD ORDERABLES Final Result [address] [place] [address] * (ABNORMAL) eGFR (09/27/2024 10:32 AM SAMPLING THEORY TEACHER) eGFR 51(L) >=60 mL/min/1. 73 m2 Comment: [...] was last reviewed 2021. Testing performed by: [address] [address] Blood 09/27/2024 10:3 2 AM SAMPLING THEORY TEACHER 09/27/2024 1:29 PM SAMPLING THEORY TEACHER us Risa Hawthorne MD LAB BLOOD ORDERABLES Final Result [facility] [address] [facility] [place] [address] * PSA screen (09/27/2024 10:32 AM SAMPLING THEORY TEACHER) PSA-Total 2.20 <=5.40 ng/mL Comment: Interpretive Data [...] data last revised 22. Testing performed by: [address] [address] Blood 09/27/2024 10:3 2 AM SAMPLING THEORY TEACHER 09/27/2024 1:22 PM SAMPLING THEORY TEACHER us Risa Hawthorne MD LAB BLOOD ORDERABLES Final Result Performing Organization Address City/[facility]/ZIP Co de Phone Number [facility] [address] [facility] [address] * (ABNORMAL) Uric acid (09/27/2024 10:32 AM SAMPLING THEORY TEACHER) Uric acid 2.9(L) 3.0 - 8.0 mg/dL Comment:Testing performed by : [facility], [address] [place] [address]., [address] Blood 09/27/2024 10:3 2 AM SAMPLING THEORY TEACHER 09/27/2024 1:22 PM SAMPLING THEORY TEACHER us Risa Hawthorne MD LAB BLOOD ORDERABLES Final Result Performing Organization Address [facility] Co de Phone Number [place] [phone] [facility] [place] [address] * (ABNORMAL) Lipid panel (09/27/2024 10:32 AM SAMPLING THEORY TEACHER) Cholesterol 108 30 - 199 mg/dL Comment: [...] last revised on 2018. Testing performed by: [facility], [address] [place] [address]., [address] Triglycerides 299(H) <=149 mg/dL LOR Comment: Interpretive [...] last revised on 2018. Testing performed by: [address] [address] HDL 24(L) >=40 mg/dL [facility] Comment: Interpretive Data Ages < or = [...] last revised on 2018. Testing performed by: [address] [address] LDL, calculated 39 <=129 mg/dL [facility] Comment: Interpretive Data Ages < or = 19 years Acceptable: <110 mg/dL Borderline high: 110-129 mg/dL High: >or= 130 mg/dL Ages > or = 20 years Optimal: <100 mg/dL Near optimal: 100-129 mg/dL Borderline high: 130-159 mg/dL High: >160 mg/dL Calculated using the Rommel LDL-C estimating equation. This equation was implemented on 2024. Prior to this date LDL-C was estimated using the Friedewald equation. Literature References: 1. Expert Panel on Integrated Guidelines for Cardiovascular Health and Risk Reduction in Children and Adolescents. Pediatrics 2011;128:S213 2. NCEP Expert Panel. Circulation 2004;110:227 3. Rommel Wheat al. LEXX Cardiol. 2020 January 12;5(5):540-548. doi: 10.1001/jamacardio.2020.0013 Current Interpretive Data was last revised on 2024. Testing performed by: [address] [address] Non-HDL Cholesterol 84 mg/dL CERNER Comment: Interpretive Data Ages < or = [...] last revised on 2018. Testing performed by: [address] [address] Chol/HDL ratio 4 CERNER Comment:Testing performed by : [address] [address] Blood 09/27/2024 10:3 2 AM SAMPLING THEORY TEACHER 09/27/2024 1:22 PM SAMPLING THEORY TEACHER us Risa Hawthorne MD LAB BLOOD ORDERABLES Final Result [address] [place] [address] * (ABNORMAL) Comprehensive metabolic panel (09/27/2024 10:32 AM SAMPLING THEORY TEACHER) Sodium 140 135 - 145 mmol/L Comment:Testing performed by : [address] [address] Potassium, pl 4.6 3.3 - 4.9 mmol/L CERNER Comment:Testing performed by : [address] [address] Chloride 107 97 - 110 mmol/L CERNER Comment:Testing performed by : [address] [address] CO2 22 22 - 32 mmol/L [facility] CH Comment:Testing performed by : [address] [address] Anion gap 11 2 - 15 mmol/L [facility] CH Comment:Testing performed by : [address] [address] BUN 24 6 - 25 mg/dL [facility] CH Comment:Testing performed by : [address] [address] Creatinine 1.47(H) 0.80 - 1.30 mg/dL [facility] CH Comment:Testing performed by : [address] [address] Glucose 91 70 - 199 mg/dL CERNER [...] classification and Diagnosis of Diabetes Diabetes Care 2021; 46: S19-S40. Current interpretive data was last revised 2022. Testing performed by: [address] [address] Calcium 9.2 8.5 - 10.3 mg/dL C[facility] CH Comment:Testing performed by : [address] [address] Bilirubin, total 0.2 0.1 - 1.2 mg/dL CERNER CH Comment:Testing performed by : [address] [address] Protein, pl 7.9 6.5 - 8.5 g/dL C[facility]ER CH Comment:Testing performed by : [address] [address] Albumin 4.2 3.5 - 5.0 g/dL CERNER CH Comment:Testing performed by : [address] [address] Alk phos 125 40 - 130 Units/L C[facility]ER CH Comment:Testing performed by : [address] [address] ALT 18 7 - 55 Units/L C[facility]ER CH Comment:Testing performed by : [address], [address] AST 24 10 - 50 Units/L [facility] Comment:Testing performed by : [facility], [address] [place] [address], [place]., [address] Blood 09/27/2024 10:3 2 AM SAMPLING THEORY TEACHER 09/27/2024 1:22 PM SAMPLING THEORY TEACHER Risa Hawthorne MD LAB BLOOD ORDERABLES Final Result Performing Organization Address [facility] de Phone Number [facility] [address] [facility] [place] [address] * Hepatitis C antibody (06/25/2022 11:48 AM CDT) Hep C Ab Nonreactive Nonreactive [facility] Comment: Interpretive Data Nonreactive: Antibodies to HCV [...] Edited Result - Final Performing Organization Address [facility] Co de Phone Number [facility] [address] [facility] [place] [address] * COLONOSCOPY (11/25/2021 10:12 AM CDT) Anatomical Region Laterality Modality Other Narrative Procedure Note Alf Hernandez MD - 11/25/2021 10:[address] [facility] Center Patient Name: Deyvi Lozada Procedure Date: 11/25/2021 10:12 AM Date of : 1955 Admit Type: Outpatient Age: 66 Gender: Male Attending MD: Alf Hernandez M.D. Room: [facility] ENDOSCOPY ROOM 2 Note Status: Finalized Patient [...] scope was passed under direct vision. TheColonoscope [id number] was introduced through the anus and advanced [...] 10:12 AM Procedure Code(s): --- Professional --- 87929, Colonoscopy, flexible; with removal of tumor(s), polyp(s), or other lesion(s) by snare technique Diagnosis Code(s): --- Professional --- K57.30, Diverticulosis of large intestine without perforation orabscess without bleeding D12.3, Benign neoplasm of transverse colon (hepatic flexure orsplenic flexure) K64.9, Unspecified hemorrhoids Z86.010, Personal history of colonic polyps CPT copyright 2020 [employer]. All rights reserved. The codes documented in this report are preliminary and upon desktop analyst reviewmay be revised to meet current compliance requirements. Recognized by the [employer] for promoting quality in endoscopy us Alf Hernandez MD ENDOSCOPY PROCEDURES Final Re sult from Last 3 Months or Most Recently Relevant to Health Maintenance Insurance COMMERCIAL GENERIC MEDICARE MEDICARE [employer] SENIOR SUPPLEMENT MEDICARE [facility] SENIOR SUPPLEMENT MEDICARE T SENIOR SUPPLEMENT Advance Directives For more information, please contact: [phone] Documents on File Type Date Recorded Patient Yolk Spray Drier Expl anation ADVANCE DIRECTIVE 04/11/2020 DNR ADVANCE [...] 7:44 AM 07/19/2020 1:20 PM Care Teams Field Underwriter Relationship Specialty Start Date End Date Risa Hawthorne MD PCP - General 12/12/16 Alf Hernandez MD [address] [place] [address] Gastroenterology 03/25/17 Brennon Hollis DPM [address] [facility] [place] [address] Orthotics 03/25/17 Js Khalil MD [address] [facility] [address] [place] [address] Referring Physician Transplant Hepatology 10/08/20 Lisy Lacey MD [address] [facility] [address] [place] [address] Consulting Physician Neurology 11/28/20 Kelly ThomJOSÉ MIGUEL [address] [place] [place] [address] Optometry 12/03/21 Kamilah Lozano MD [address] [place] [address] Medical Oncologist/Pathologist Medical Oncology 08/06/22 Marycarmen Larios MD [address] [place] [address] Consulting Physician Plastic Surgery 12/26/22 Bj Gomez MD [address] [place] [address] Consulting Physician Anesthesiology 07/02/23 Gallo West MD [address] [place] [address] [address] [address] Surgeon Orthopedic Surgery 01/07/24 Phill Portillo MD [address] [place] [address] Orthopedic Surgery 10/03/21
--- OUTSIDE RECORDS SUMMARY | 2024-12-23 12:32 | XMS_ITS | Clinical Summary ---
Author Organization [facility] [employer] Address [address] [place] [address] Care Team Providers Care Joy Loader Name Role Phone Jessenia Hawthorne MD Primary Care Provider [phone] Source Comments [facility] [employer],non-owned Affiliates and Associated Physician Practices is amultiple site organization consisting of ambulatory clinics and hospital sitesin [place], [place], [place] and [place]. This disclosure is being madepursuant to the Care Everywhere program and may not contain all information available regarding this patient. Last updated 18.[facility] [employer] Allergies No known active allergies Medications * Be aware that medications may not be up to date on this document. Alwaysverify current medications with the patient. Medication Sig Dispensed Refills Start Date End Date Status divalproex ER 24hr (DEPAKOTE ER) 500 MG tablet Take 1,500 mg by mouth at bedtime. 5 12/21/2014 Active clonazePAM (KLONOPIN) 0.5 MG tablet 10/26/2014 Active CRESTOR 40 MG tablet 01/16/2015 Acti ve omeprazole (PRILOSEC) 20 MG capsule 01/16/2015 Active spironolactone-hydro chlorothiazide (ALDACTAZIDE 25) 25-25 MG tablet 01/16/2015 Active fenofibrate (LOFIBRA) 160 MG tablet 01/16/2015 Active mirtazapine (REMERON) 45 MG tablet Take 45 mg by mouth at bedtime. 2 12/21/2014 Active CIALIS 20 MG tablet 10/26/2014 Activ e citalopram (CELEXA) 40 MG tablet Take 40 mg by mouth once daily. Active aspirin (ASPIRIN) 81 MG tablet Take 81 mg by mouth once daily. Active vitamin D, cholecalciferol, 1000 UNITS tablet Take by mouth once daily. Active naproxen (NAPROSYN) 500 MG tabletIndications:Go ut, unspecified Take 1 Tab by mouth 2 times daily. for 5 days then stop Use for flare ups 60 Tab 6 01/19/2015 Active allopurinol (ZYLOPRIM) 300 MG tabletIndications:Go ut, unspecified Take 1.5 Tabs by mouth once daily Daily allopurinol will reduce your uric acid to normal levels. 60 Tab 12 03/28/2015 Active colchicine 0.6 MG tabletIndications:Go ut, unspecified Take 1 Tab by mouth once daily 30 Tab 4 03/28/2015 Active Active Problems Problem Noted Date Diagnosed Date Gout 03/28/2015 Overview (06/14/2015): Post-traumatic osteoarthritis of right knee 03/14 Family History Medical History Relation Name Comments Cancer Father Hypertension Father Cancer Mother Hypertension Sister Relation Name Status Comments Father Mother Sister Social History Tobacco Use Types Packs/Day Years Used Date Smoking Tobacco: Former Smokeless Tobacco: Never Alcohol Use Standard Drinks/Week Comments Yes 0 (1 standard drink = 0.6 oz pur e alcohol) socially Sex and Gender Information Value Date Recorded Sex Assigned at Not on file Gender Identity Not on file Sexual Orientation Not on file Last Filed Vital Signs Vital Sign Reading Time Taken Comments Blood Pressure 139/91 03/28/2015 1:49 PM CDT Pulse 72 03/28/2015 1:49 PM CDT Temperature - - Respiratory Rate - - Oxygen Saturation - - Inhaled Oxygen Concentration - - Weight 124.7 kg (275 lb) 03/28/2015 1:49 PM CDT Height 191.8 cm (6' 3.5 ) 01/19/2015 1:09 PM CDT Body Mass Index 33.92 01/19/2015 1:09 PM CDT Plan of Treatment Health Maintenance Due Date Last Done Comments COLOGUARD (AGES 45-75) - COLON CA SCREENING [address] COLONOGRAPHY - COLON CA SCREENING 1955 FIT - COLON CA SCREENING 1955 FLEX SIG - COLON CA SCREENING 1955 HEPATITIS C SCREENING 03/07/1973 DTAP/TDAP/TD VACCINES (1 - Tdap) 1974 PNEUMOCOCCAL VACCINE 50+ (1 of 1 - PCV) 2005 ZOSTER VACCINE (1 of 2) 2005 AAA SCREENING 2020 COVID-19 VACCINE (2 - season) 2024 11/01/2020 DEPRESSION SCREENING 09/14/2024 INFLUENZA VACCINE (Season Ended) 2025 06/15/2019, 09/22/2017, 08/14/2017, Additional history exists Respiratory Syncytial Virus (RSV) Vaccine Pt: or over 60 yrs (1 - 1-dose 75+ series) 2030 COLONOSCOPY - COLON CA SCREENING 11/26/2031 11/25/2021 Colorectal Cancer Screening 11/26/2031 HEPATITIS B VACCINE Aged Out No longe r eligible based on patient's age to complete this topic HIB VACCINE Aged Out No longer eligi ble based on patient's age to complete this topic HPV VACCINE Aged Out No longer eligi ble based on patient's age to complete this topic MENINGOCOCCAL (Group B) VACCINE SHARED DECISION-MAKING Aged Out No longer eligible based on patient's age to complete this topic MENINGOCOCCAL GROUPS A/C/Y/W VACCINE Aged Out No longer eligible based on patient's age to complete this topic Care Teams Joy Loader Relationship Specialty Start Date End Date Jessenia Hawthorne MD [address] [place] [address] PCP - General Internal Medicine 12/19/14
--- OUTSIDE RECORDS SUMMARY | 2024-12-23 12:32 | XMS_ITS | Clinical Summary ---
Author Organization [facility] Address [address] [place] [address] Care Team Providers Care Tire Servicer Name Role Phone Risa Hawthorne MD Primary Care Provider [phone] Allergies No known active allergies Medications atenolol (TENORMIN) 50 MG tablet Take 1 tablet (50 mg total) by mouth daily. 2 Active clonazePAM (KLONOPIN) 0.5 MG tablet Take 2 tablets (1 mg total) by mouth 3 (three) times a day. See instructions 2 Active divalproex ER (DEPAKOTE) 500 MG 24 hr tablet 3 tabs in am 1 tab in pm 2 Active FLUoxetine (PROZAC) 20 MG capsule Take 1 capsule (20 mg total) by mouth 2 (two) times daily. 2 Active olmesartan (BENICAR) 20 MG tablet Take 1 tablet (20 mg total) by mouth daily. 2 Active omeprazole (PRILOSEC) 20 MG capsule Take 1 capsule (20 mg total) by mouth daily. 2 Active rosuvastatin (CRESTOR) 40 MG tablet Take 1 tablet (40 mg total) by mouth daily. 2 Active valACYclovir (VALTREX) 1 g tablet Take 1 tablet (1,000 mg total) by mouth daily as needed. Active sildenafil (REVATIO) 20 MG tablet Take 5 tablets (100 mg total) by mouth daily as needed. 2 Active Turmeric Curcumin 500 MG Cap Take 500 mg by mouth 3 (three) times daily. 2 Active zolpidem CR (AMBIEN CR) 6.25 MG tablet Take 1 tablet (6.25 mg total) by mouth nightly as needed. FOR SLEEP 2 Active senna-docusate (SENOKOT-S) 8.6-50 MG tablet Take 1 tablet by mouth daily. 60 tablet 1 3 Active HYDROcodone-adelfo taminophen (NORCO) 5-325 MG tabletIndicatio ns:Acute Pain < 7 Day Supply,post op Take 1-2 tablets by mouth every 6 (six) hours as needed for Pain. Indications: Acute Pain < 7 Day Supply, post op 45 tablet 3 Active Additional Information Patient not taking.Reported on 11/24/2022 cyclobenzaprine (FLEXERIL) 10 MG tablet Take 1 tablet (10 mg total) by mouth nightly as needed. 3 Active HYDROcodone-adelfo taminophen (NORCO) 7.5-325 MG tablet TAKE 1 TABLET BY MOUTH 4 TIMES DAILY NEEDED FOR PAIN 3 Active Active Problems No known active problems Social History Tobacco Use Types Packs/Day Years Used Date Smoking Tobacco: Former Cigarettes 0.2 27 1 985 - 2011 Smokeless Tobacco: Never Tobacco Cessation:Counseling Given: No Comments:Smoked 1 pack per week Alcohol Use Standard Drinks/Week Comments Not Currently 0 (1 standard drink = 0.6 oz pur e alcohol) social - 0-6 per week Sex and Gender Information Value Date Recorded Sex Assigned at Not on file Legal Sex Male 8:03 AM PICKLE PROCESSOR Gender Identity Not on file Sexual Orientation Not on file Last Filed Vital Signs Vital Sign Reading Time Taken Comments Blood Pressure 152/89 11/24/2022 1:52 PM CDT Pulse 94 11/24/2022 1:52 PM CDT Temperature 35.7 C (96.2 F) 09/26/2022 4:32 AM PICKLE PROCESSOR Respiratory Rate 20 09/26/2022 8:00 AM PICKLE PROCESSOR Oxygen Saturation 94% 09/26/2022 8:00 AM PICKLE PROCESSOR Inhaled Oxygen Concentration - - Weight 123.7 kg (272 lb 9.6 oz) 11/24/2022 1:52 PM CDT Height 190.5 cm (6' 3 ) 11/24/2022 1:52 PM CDT Body Mass Index 34.07 11/24/2022 1:52 PM CDT Plan of Treatment Health Maintenance Due Date Last Done Comments Colorectal Cancer Screening Colonoscopy (10 Years) 1955 Hepatitis C 1973 Annual Medicare Wellness Visit 2020 Zoster Vaccines (3 of 3) 11/17/2022 09/22/2022, 06/15 COVID-19 Vaccine ( season) 2024 07/09/2022, 07/16/2021, 12/03/2020, Additional history exists PHQ-2 (Physician [place]) 09/14/2024 DTaP, Tdap and Td Vaccines (2 - Td or Tdap) 02/07/2026 02/08/2016 RSV Immunization or 60+ Years (1 - 1-dose 75+ series) 2030 Pneumococcal Vaccine: 65+ Years Completed 06/05/2021, 04/11/2020 Meningococcal B Vaccine Aged Out No l onger eligible based on patient's age to complete this topic Meningococcal Vaccine Aged Out No cindy jena eligible based on patient's age to complete this topic RSV Immunizations Under 20 Months Aged Out No longer eligible based on patient's age to complete this topic Goals Goal Patient Goal Type Associated Problems Recent Progress Patient-Stated? Author Family - family caregiver with be involved in care transitions and discharge planning Lifestyle No Donald Dorman, RN Medical Devices Implanted Type Area Medical Diagnostic Radiographer Device Identifier Shelf Expiration Date Model / Serial / Lot Graft Bone I Factor 2.5cc Allograft Putty Syringe - [id number] Implanted:Qty: 1 on 09/25/2022 by Martín Moura MD at [facility] Bone N/A: Spine Cervical [employer] [id number] 02/11/2025 700-025 / / [id number] Zavation 37mm Plate Implanted:Qty: 1 on 09/25/2022 by Martín Moura MD at [facility] Plate N/A: Spine Cervical ORTHOFIX 30-0237 / / Zavation 4.0 X 14mm Vsd Screws Implanted:Qty: 6 on 09/25/2022 by Martín Moura MD at [facility] Screw N/A: Spine Cervical ORTHOFIX 31-4014 / / Orthofix Construx Mini Ti Spacer System Intervertebral Body Fusion Spinal Device Implanted:Qty: 1 on 09/25/2022 by Martín Moura MD at [facility] Spacer N/A: Spine Cervical ORTHOFIX [id number] 07/05/2026 [id number] P / / 005 Description:C5-6 Orthofix Contrux Mini Ti Spacer System Intervertebral Body Fusion Spinal Device Implanted:Qty: 1 on 09/25/2022 by Martín Moura MD at [facility] Spacer N/A: Spine Cervical ORTHOFIX [id number] 06/19/2026 [id number] P / / 005 Description:C4-5 Left Knee Explanted Type Area Medical Diagnostic Radiographer Device Identifier Shelf Expiration Date Model / Serial / Lot Distration Pin 12mm - [id number] Explanted:Qty: 2 on 09/25/2022 by Martín Moura MD at [facility] Pin N/A: Spine Cervical MED[employer] DP-12-TB / / Insurance MEDICARE [facility] Advance Directives * Full Code (Latest Code Status on File) Date Activated Date Inactivated Comments 09/25/2022 6:01 PM 09/26/2022 1:26 PM Care Teams Tire Servicer Relationship Specialty Start Date End Date Risa Hawthorne MD [address] [place] [address] PCP - General INTERNAL MEDICINE 09/11/22
--- OUTSIDE RECORDS SUMMARY | 2024-12-23 12:37 | XMS_ITS | Continuity of Care Document ---
Author Organization [facility] Address [address] [place] [address] [place] [address] Phone Care Team Providers Care Rock Cutter Name Role Phone Alvarado Flores MD Unavailable Unavailable Advance Directives Directive Yes / No Effective Date File Name No Information Encounters Encounter Description Practice Location Reason(s) For Visit Diagnoses Date Provider Providers Copied on Encounter [facility], [address], [place], [place], [id number], [place] tel:[phone] [facility] Professional No Information [address] Mark Childers. [address], [address], [place], [place], [id number], [place]. tel:[phone] Referring Provider: Risa Hawthorne MD, [address], [place], [address]. tel:[phone] Family History Family Member Type Diagnosis Age At Onset No Information Payers Payer name Insurance type Covered green party ID Authoriza tiелена(s) [facility] Commercial CI [id number] Social History Type Description Quantity Date Captured [...]
[2024-12-23 12:44] VITALS: BP 108/68; PULSE 73; RESP 16; TEMP 36.6; O2SAT 98
== END 2024-12-23 13:25 | disposition home or self-care (01) ==
PROVIDERS: Emergency Provider Nurse Practitioner; PCP Internal Medicine Geriatric Medicine
DX: H61.23 Impacted cerumen, bilateral (principal)
CPT/HCPCS: 69210; 99212; A9270; G0463